=== PATIENT | male | born 1930 | race Hispanic/Latino ===

== ENCOUNTER 2018-04-27 13:02 | Emergency (ER) | payer MEDICARE, OTHER ==
[~2018-04-27] VITALS: Ht 167.6 cm; Wt 68.9 kg
[~2018-04-27 13:02] MED LIST: ATORVASTATIN CA20 MG PO; CLOPIDOGREL75 MG PO; FLOMAX0.4 MG PO; GABAPENTIN400 MG PO; LASIX20 MG PO; LEVAQUIN250 MG PO; LISINOPRIL10 MG PO; LISINOPRIL2.5 MG PO
--- OUTSIDE RECORDS SUMMARY | 2018-04-27 13:06 | XMS REPORT | Clinical Summary ---
Author Author [facility] Address Unknown Phone Unavailable Care Team Providers Care Plant Wire Chief Name Role Phone Daryn Bahena MD PCP Allergies No Known Allergies Medications End Date Status Medication Sig Dispensed Refills Start Date Active gabapentin (NEURONTIN) Take 400 mg 0 400 mg capsule by mouth daily. Active tamsulosin (FLOMAX) 0.4 Take 0.4 mg 0 mg capsule,extended by mouth release 24hr daily. Active aspirin (ECOTRIN) 81 MG Take 81 mg by 0 enteric coated tablet mouth daily. Active clopidogrel (PLAVIX) 75 Take 75 mg by 0 mg tablet mouth daily. Active atorvastatin (LIPITOR) 20 Take 20 mg by 0 MG tablet mouth daily. Default OP ins Active lisinopril Take 2.5 mg 0 (PRINIVIL,ZESTRIL) 2.5 mg by mouth tablet daily. Active Problems Not on file Family History Medical History Relation Name Comments Diabetes Mother Relation Name Status Comments Mother Social History Date Tobacco Use Types Packs/Day Years Used Quit: 1971 Former Smoker Alcohol Use Drinks/Week oz/Week Comments No Sex Assigned at Date Recorded Not on file Industry Job Start Date Occupation Not on file Not on file Not on file Travel End Travel History Travel Start No recent travel history available. Last Filed Vital Signs Not on file Plan of Treatment Health Maintenance Due Date Last Done Comments SHINGLES VACCINES (#1) 1982 65+ PNEUMOCOCCAL VACCINE 1997 (1 of 2 - PCV13) PNEUMOCOCCAL 1997 POLYSACCHARIDE VACCINE AGE 65 AND OVER INFLUENZA VACCINE 09/16/2017 Results Not on fileafter 04/26/2017 Insurance Payer Benefit Subscriber ID Type Phone Address Plan / Group MEDICARE MEDICARE xxxxxxxxxx Medicare [place], [place] PART [place] B MEDICAID MEDICAID xxxxxxxxx Medicaid Advance Directives Patient has advance care planning documents on file. For more information, silvina mon contact: Richard Cosme [phone] [place] [address]
--- OUTSIDE RECORDS SUMMARY | 2018-04-27 13:06 | XMS REPORT | Continuity of Care Document ---
Author Author [facility] Interface Address Unknown Phone Unavailable Problems Problem Status Onset Date Classification Date Reported Comments Source J98.4 Active 11/12/2017 [facility] DX: [id number] EFFUSION, NOT ELSEWHERE Active 09/29/2016 [facility] N/V Active 08/16/2016 [facility] BACTERIAL LOBAR PNEUMONIA,SIRS Active 08/16/2016 [facility] Hypertensive heart disease, benign, without CHF Active Problem 01/15/2017 [facility] Nav[facility] Varicose veins of leg with complications Active Problem 01/15/2017 Dion Navas Atherosclerosis of lower extremity with claudication Active Problem 01/15/2017 Dion Navas Bilateral carotid bruits Active Problem 01/15/2017 Dion Navas SSS Active Problem 01/15/2017 Dion Navas Chronic diastolic heart failure Active Problem 01/15/2017 Dion Navas Status post coronary artery stent placement Active Problem 01/15/2017 Dion Navas Pain in limb Active Problem 01/15/2017 Dion Navas Bradycardia Active Problem 01/15/2017 Dion Navas CAD of artery bypass graft Active Problem 01/15/2017 Dion Navas Swelling of limb Active Problem 01/15/2017 Dion Navas Hypercholesterolemia Active Problem 01/15/2017 Dion Navas 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 Active Diagnosis 01/15/2017 Dion Navas H/O aortic valve replacement Active Problem 01/15/2017 Dion Navas Abnormal EKG Active Problem 01/15/2017 Dion Navas Aortic valve disorders Active Problem 09/10/2014 Dion Navas HTN heart dis benign, without CHF Active Problem 09/10/2014 Dion Navas Shortness of breath Active Problem 09/10/2014 Dion Navas Equivalent angina Active Problem 09/10/2014 Dion Navas Atherosclerosis of lower extremity with claudication Active Problem 09/10/2014 Dion Navas Venous insufficiency Active Problem 09/10/2014 Dion Navas Pain in limb Active Problem 09/10/2014 Dion Navas Unspecified peripheral vascular disease Active Problem 09/10/2014 Dion Navas Chest pain at rest Active Problem 09/10/2014 Dion Navas Swelling of limb Active Problem 09/10/2014 Dion Navas Varicose veins of leg with complications Active Problem 09/10/2014 Dion Navas CAD, Graft Active Diagnosis 09/10/2014 Dion Navas Generalized osteoarthrosis, involving multiple sites Active Problem 09/10/2014 Dion Navas Heart valve artificial Active Problem 09/10/2014 Dion Navas Abnormal EKG Active Problem 09/10/2014 Dion Navas 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 Active Diagnosis 09/10/2014 Dion Navas Status post coronary artery stent placement Active Diagnosis 09/10/2014 Dion Navas H/O aortic valve replacement Active Diagnosis 09/10/2014 Dion Navas Abnormal ECG Active Diagnosis 09/10/2014 Dion Navas Varicose veins of both lower extremities with complications Active Diagnosis 09/10/2014 Dion Navas Diabetes Active Problem 10/05/2016 [facility] Hypercholesteremia Active Problem 10/05/2016 [facility] Hypertension Active Problem 10/05/2016 [facility] PLEURAL EFFUSION, NOT ELSEWHERE CLASSIFI Active [facility] UNSPECIFIED BACTERIAL PNEUMONIA Active [facility] SIRS OF NON-INFECTIOUS ORIGIN W/O ACUTE Active [facility] OTHER SPECIFIED RESPIRATORY DISORDERS Active [facility] Medications Medication Details Route Status Patient Instructions Ordering Provider Order Date Source Furosemide 1 tablet Orally Active 20 MG Orally Once a day Jeroudi 09/08/2016 Dion Navas Levofloxacin 750 MG Oral Tablet [Levaquin] 750 mg=1 tab, PO, Q24H, X 14 day, # 14 tab, 0 Refill(s), Pharmacy: [facility] [id number] Active 08/20/2016 [facility] Lisinopril 20 mg, 1 tab, Route: PO, Drug form: TAB, Daily, Dosing Weight 81.534, kg, Start date: 08/18/16 9:00:00 CDT, Duration: 30 day, Stop date: 09/16/16 9:00:00 CDTNotes: (Same as: Prinivil, Zestril) No Longer Active 08/18/2016 [facility] gabapentin 400 MG Oral Capsule 400 mg, 1 cap, Route: PO, Drug form: CAP, Daily, Dosing Weight 81.534, kg, Start date: 08/18/16 9:00:00 CDT, Duration: 30 day, Stop date: 09/16/16 9:00:00 CDTNotes: (Same as: Neurontin) No Longer Active 08/18/2016 [facility] clopidogrel 75 mg, 1 tab, Route: PO, Drug form: TAB, Daily, Dosing Weight 81.534, kg, Start date: 08/18/16 9:00:00 CDT, Duration: 30 day, Stop date: 09/16/16 9:00:00 CDTNotes: (Same As: Plavix) No Longer Active 08/18/2016 [facility] Aspirin 81 mg, 1 tab, Route: PO, Drug form: [place], Daily, Dosing Weight 81.534, kg, Start date: 08/18/16 9:00:00 CDT, Duration: 30 day, Stop date: 09/16/16 9:00:00 CDTNotes: Take with food. No Longer Active 08/18/2016 [facility] tamsulosin 0.4 mg, 1 cap, Route: PO, Drug form: CAP, Daily, Dosing Weight 81.534, kg, Start date: 08/17/16 22:58:00 CDT, Duration: 30 day, Stop date: 09/15/16 9:00:00 CDTNotes: (Same As: Flomax) "Do Not Crush" No Longer Active 08/18/2016 [facility] atorvastatin 20 mg, 2 tab, Route: PO, Drug form: TAB, Bedtime, Dosing Weight 81.534, kg, Start date: 08/17/16 21:00:00 CDT, Duration: 30 day, Stop date: 09/15/16 21:00:00 CDTNotes: (Same As: Lipitor) No Longer Active 08/18/2016 [facility] cefepime 2 gm, Route: IVPB, [id number], Dosing Weight 81.534, kg, (CrCl >/=50 ml/min, HEEL FORMER infection or neutropenic fever), Start date: 08/17/16 19:00:00 CDT, Duration: 10 day, Stop date: 08/27/16 12:00:00 CDT, ABX Indication: PneumoniaNotes: (Same as: Maxipime) MEDICATION WASTE Product Size: 2000 mg Product Wasted: ___ mg No Longer Active 08/18/2016 [facility] Flagyl 500 mg, 100 mL, Route: IVPB, Drug form: INJ, [id number], Dosing Weight 81.534, kg, Start date: 08/17/16 19:00:00 CDT, Duration: 14 day, Stop date: 08/31/16 11:00:00 CDT, ABX Indication: PneumoniaNotes: (Same as: Flagyl) Avoid alcohol. No Longer Active 08/18/2016 [facility] aspirin 81 mg tablet, enteric coated 81 mg=1 tab, PO, Daily, # 90 tab, 3 Refill(s) Active 08/17/2016 [facility] lisinopril 20 mg oral tablet 20 mg=1 tab, PO, Daily, # 30 tab, 0 Refill(s) Active 08/17/2016 [facility] clopidogrel 75 mg oral tablet 75 mg=1 tab, PO, Daily, # 30 tab, 0 Refill(s) Active 08/17/2016 [facility] Vitamin D3 2000 intl units oral capsule 2,000 IntlUnit=1 cap, PO, Daily, # 100 cap, 3 Refill(s) Active 08/17/2016 [facility] Aspirin 81 mg, PO, Daily, 0 Refill(s) Active 08/17/2016 [facility] gabapentin 400 MG Oral Capsule 400 mg=1 cap, PO, Daily, 0 Refill(s) Active 08/17/2016 [facility] atorvastatin 20 mg, PO, Daily, 0 Refill(s) Active 08/17/2016 [facility] tamsulosin 0.4 mg, PO, Daily, 0 Refill(s) Active 08/17/2016 [facility] Levofloxacin 500 mg, 100 mL, Route: IVPB, Drug form: SOLN, [id number], Dosing Weight 81.534, kg, Priority: Routine, Start date: 08/17/16 3:00:00 CDT, Duration: 5 day, Stop date: 08/21/16 3:00:00 CDT, ABX Indication: PneumoniaNotes: (Same as:Levaquin) Inactive 08/17/2016 [facility] dextromethorphan-guaiFENesin 10 mg-100 mg/5 mL oral liquid 10 mL, Route: PO, Drug Form: SYRP, Dosing Weight 81.534, kg, Q4H, PRN Cough, Start date: 08/17/16 2:51:00 CDT, Duration: 30 day, Stop date: 09/16/16 2:50:00 CDTNotes: (dextromethorphan-guaifenesin 10-100mg/5ml 10 ml oral SOLN ud) (Same as: Robitussin DM) No Longer Active 08/17/2016 [facility] Codeine Phosphate 2 MG/ML / Guaifenesin 20 MG/ML Oral Solution 5 mL, Route: PO, Drug Form: LIQ, Dosing Weight 81.534, kg, Q4H, PRN Cough, Start date: 08/17/16 2:51:00 CDT, Duration: 30 day, Stop date: 09/16/16 2:50:00 CDTNotes: (Same As: Duanesin AC) No Longer Active 08/17/2016 [facility] Sodium Chloride 0.0769 MEQ/ML Injectable Solution 1,000 mL, Rate: 75 ml/hr, Infuse over: 13.3 hr, Route: IV, Dosing Weight 81.534 kg, Total Volume: 1,000, Start date: 08/17/16 2:51:00 CDT, Duration: 30 day, Stop date: 09/16/16 2:50:00 CDT No Longer Active 08/17/2016 [facility] Albuterol 0.833 MG/ML / Ipratropium [place] 0.167 MG/ML Inhalant Solution 3 mL, Route: NEB, Drug Form: SOLN, Dosing Weight 81.534, kg, PRN, PRN Respiratory Protocol, Start date: 08/17/16 2:51:00 CDT, Duration: 30 day, Stop date: 09/16/16 2:50:00 CDTNotes: (Same as: Duoneb) No Longer Active 08/17/2016 [facility] Saline Flush 0.9% 10 ml, Route: IVP, Drug Form: INJ, Dosing Weight 81.534, kg, PRN, PRN Line Flush, Start date: 08/17/16 2:51:00 CDT, Duration: 30 day, Stop date: 09/16/16 2:50:00 CDTNotes: (Same as: BD Posiflush) No Longer Active 08/17/2016 [facility] Insulin, Aspart, Human 10 unit, 0.1 mL, Route: SUB-Q, Drug form: SOLN, TID-Before Meals, Dosing Weight 81.534, kg, PRN Blood Glucose Results, Start date: 08/17/16 2:41:00 CDT, Duration: 30 day, Stop date: 09/16/16 2:40:00 CDTNotes: Roll in palms of hands gently; Do not shake vigorously. (Same as: NovoLOG) "single patient use only" WASTE: F/P - Black; E - Municipal Trash Bin Stable for 28 days at room temperature. Expires in days from Date No Longer Active 08/17/2016 [facility] Dextrose 50% Syringe 12.5 gm, 25 mL, Route: IVP, Drug Form: INJ, Dosing Weight 81.534, kg, PRN, PRN Blood Glucose Results, Start date: 08/17/16 2:41:00 CDT, Duration: 30 day, Stop date: 09/16/16 2:40:00 CDT No Longer Active 08/17/2016 [facility] Glucagon 1 mg, Route: IM, Drug form: PDR/INJ, PRN, Dosing Weight 81.534, kg, PRN Blood Glucose Results, Start date: 08/17/16 2:41:00 CDT, Duration: 30 day, Stop date: 09/16/16 2:40:00 CDT No Longer Active 08/17/2016 [facility] Vancomycin 1,000 mg, Route: IVPB, ONCE, Dosing Weight 81.818, kg, Priority: STAT, Start date: 08/17/16 0:12:00 CDT, Duration: 1 doses or times, Stop date: 08/17/16 0:12:00 CDT, ABX Indication: PneumoniaNotes: TIME CRITICAL MEDICATION (Same As: Vancocin) Infusion rate 2001 mg: infuse over 2.5 hours MEDICATION WASTE Product Size: 1000 mg Product Wasted: ___ mg Inactive 08/17/2016 [facility] Zosyn 3.375 gm, Route: IVPB, ONCE, Dosing Weight 81.818, kg, Priority: STAT, Start date: 08/16/16 23:11:00 CDT, Duration: 1 doses or times, Stop date: 08/16/16 23:11:00 CDT, ABX Indication: Intra-abdominal Infection No Longer Active 08/17/2016 [facility] Sodium Chloride 0.154 MEQ/ML Injectable Solution 1,000 mL, 1,000 ml/hr, Infuse Over: 1 hr, Route: IV, ONCE, Priority: STAT, Dosing Weight 81.818 kg, Start date: 08/16/16 23:11:00 CDT, Duration: 1 doses or times, Stop date: 08/16/16 23:11:00 CDT No Longer Active 08/17/2016 [facility] Sodium Chloride 0.154 MEQ/ML Injectable Solution 1,000 mL, 1,000 ml/hr, Infuse Over: 1 hr, Route: IV, 1,000, Drug form: INJ, ONCE, Priority: STAT, Dosing Weight 81.818 kg, Start date: 08/16/16 22:42:00 CDT, Duration: 1 doses or times, Stop date: 08/16/16 22:42:00 CDT Inactive 08/17/2016 [facility] Protonix 40 mg, Route: IVP, Drug form: INJ, ONCE, Dosing Weight 81.818, kg, Priority: STAT, Start date: 08/16/16 21:51:00 CDT, Stop date: 08/16/16 21:51:00 CDTNotes: For IV push reconstitute with 10 ml 0.9% sodi um chloride and push over 2 minutes. (Same as: Protonix) No Longer Active 08/17/2016 [facility] Acetaminophen 975 mg, 3 tab, Route: PO, Drug form: TAB, ONCE, Dosing Weight 81.818, kg, Start date: 08/16/16 21:43:00 CDT, Stop date: 08/16/16 21:43:00 CDTNotes: Do not exceed 4 gm/day. (Same as: Tylenol) Inactive 08/17/2016 [facility] Saline Flush 0.9% 10 mL, Route: IVP, Drug Form: INJ, Dosing Weight 81.818, kg, PRN, PRN Line Flush, Start date: 08/16/16 21:43:00 CDT, Duration: 30 day, Stop date: 09/15/16 21:42:00 CDTNotes: (Same as: BD Posiflush) No Longer Active 08/17/2016 [facility] Clopidogrel Bisulfate 1 tablet Orally Active 75 mg Orally Once a day [facility] 08/18/2013 [facility] Lisinopril 1 half tablet Orally Active 5 MG Orally Once a day [facility] Lisinopril 1 half tablet Orally Active 5 MG Or[facility] Aspir-81 1 tablet Orally Active 81 MG Orally [facility] Avodart 1 capsule Orally Active 0.5 MG Orally [facility] a [facility] Cyclobenzaprine HCl 1 tablet Orally Active 5 MG Orally PRN [facility] Baclofen 1 tablet Orally Active 10 mg Orally once a day [facility] Atorvastatin Calcium 1 tablet Orally Active 20 MG Orally Once a day [facility] Metoprolol Tartrate 1 tablet Orally Active 25 MG Orally Twice a day [facility] Tamsulosin HCl 1 tablet Orally Active 0.4 MG Orally Once a day [facility] Lisinopril 1 half tablet Orally Active 5 Orally [facility] a [facility] Lovastatin 1 tablet Orally Active 40 mg Orally [facility] a [facility] Pentoxifylline CR 1 tablet Orally No Longer Active 400 MG Orally three times a day (tid) [facility] Allergies, Adverse Reactions, Alerts Substance Category Reaction Severity Reaction type Status Date Reported Comments Source N.K.D.A. Adverse Reaction Info Not Available Adverse Reaction Active 05/02/2014 [facility] Navas Immunizations Immunization Date Given Site Status Last Updated Comments Source Results Order Name Results Value Reference Range Date Interpretation Comments Source Chest wo contrast CT Chest wo contrast CT Clinical Indication: - J98.4 Other disorders of lung. Monitoring small spot on lung found x2 years ago, after pneumonia. Prior CT demonstrated pulmonary nodules. Comparison: 10/02/2016. TECHNIQUE: Sequential trans-axial images were obtained through the chest without the administration of IV iodinated contrast. Coronal and sagittal reconstructions were obtained. Dose: HKC=411 mGy-cm Findings: Lungs: There are a few scattered punctate pulmonary nodules which are stable from the prior study. Persistent scarring within the lower lungs bilaterally. Airways: Normal. Pleural and pericardial spaces: Interval decrease in size of the right pleural effusion. Only trace right pleural effusion or pleural thickening remains. Thoracic lymph nodes: Normal. Lower neck: Normal. Upper abdomen: Cholelithiasis. Vasculature: Extensive coronary calcifications. There are also prominent aortic and mitral valvular calcifications. No aortic aneurysm. Osseous structures: Prior median sternotomy. Moderate degenerative spurring of the thoracic spine. Mild curvature of the thoracic spine convex to the left. IMPRESSION: Stable subcentimeter pulmonary nodules which are therefore benign by radiologic criteria. No further follow-up is necessary for these nodules. Interval decrease in size of a right pleural effusion with only a trace right pleural effusion or pleural thickening remaining. Cholelithiasis. Prominent coronary, aortic valvular and mitral valvular calcifications. SL: IRMA 11/19/2017 - - Read by: Ilya Jones MD Dictated Date/time: 11/19/17 23:34 Electronically Signed by: Ilya Jones MD 11/19/17 23:50 FINAL REPORT [facility] wo contrast CT Chest wo contrast CT Patient Name: ASHANTI ROLAND : 1930; Age: 86 years Male MR: [id number] Study: Chest wo contrast CT 10/02/2016 10:12 AM CDT CLINICAL INDICATION: CT dose DLP 322 mGy-cm - J90 Pleural effusion, not elsewhere classified pt states this is a follow up for the pleural effusion COMPARISON: CT chest on 08/17/2016 TECHNIQUE: Multidetector CT imaging of the thorax without the administration of iodinated contrast. Coronal and sagittal reconstructions were obtained. FINDINGS: Lung parenchyma: Stable 4 mm nodule within the lingula. Stable 3 mm nodule within the right upper lobe. Atelectatic changes within the lower right lung. Pleura: Small and partially loculated right pleural effusion. Airways: The central airways appear patent. Mediastinum: Unremarkable thyroid. No significant lymphadenopathy. Coronary artery and valvular calcifications. Bones and soft tissues: Degenerative changes of the thoracic spine. Median sternotomy wires appear intact. Upper abdomen: The visualized structures of the upper abdomen are grossly unremarkable. IMPRESSION: Small and partially loculated right pleural effusion, not significantly changed since 08/17/2016. Previously noted groundglass opacities within the right lower lung and left perihilar region have resolved. Two unchanged small pulmonary nodules as described. SL: [id number] 10/02/2016 - - Read by: Cat Lorenz MD Dictated Date/time: 10/02/16 11:48 Electronically Signed by: Cat Lorenz MD 10/02/16 11:57 FINAL REPORT [facility] CHEM PANEL eGFR 71 mL/min/1.73m2 08/19/2016 Result Comment: The eGFR is calculated using the CKD-EPI formula. In most young, healthy individuals the eGFR will be >90 mL/min/1.73m2. The eGFR declines with age. An eGFR of 60-89 may be normal in some populations, particularly the elderly, for whom the CKD-EPI formula has not been extensively validated. Use of the eGFR is not recommended in the following populations: Individuals with unstable creatinine concentrations, including patients and those with serious co-morbid conditions. Patients with extremes in muscle mass or diet. The data above are obtained from the National Kidney Disease Education Program (NKDEP) which additionally recommends that when the eGFR is used in patients with extremes of body mass index for purposes of drug dosing, the eGFR should be multiplied by the estimated BMI. [facility] CHEM PANEL AGAP 11.2 meq/L 10.0 - 20.0 08/19/2016 [facility]M PANEL Bili Total 0.4 mg/dL 0.2 - 1.3 08/19/2016 [facility] CHEM PANEL AST 20 unit/L 0 - 37 08/19/2016 [facility] CHEM PANEL Alk Phos 61 unit/L 39 - 136 08/19/2016 [facility] CHEM PANEL Albumin Lvl 2.8 g/dL 3.5 - 5.0 08/19/2016 [facility] CHEM PANEL ALT 17 unit/L 0 - 65 08/19/2016 [facility] CHEM PANEL Total Protein 6.3 g/dL 6.4 - 8.4 08/19/2016 [facility] CHEM PANEL CO2 26 meq/L 24 - 32 08/19/2016 [facility] CHEM PANEL Calcium Lvl 8.1 mg/dL 8.5 - 10.5 08/19/2016 [facility] CHEM PANEL Potassium Lvl 4.2 meq/L 3.5 - 5.1 08/19/2016 [facility] CHEM PANEL Chloride Lvl 107 meq/L 95 - 109 08/19/2016 [facility] CHEM PANEL A/G Ratio 0.8 0.7 - 1.6 08/19/2016 [facility] CHEM PANEL B/C Ratio 18 6 - 25 08/19/2016 [facility] CHEM PANEL Globulin 3.5 g/dL 2.7 - 4.2 08/19/2016 [facility] CHEM PANEL Creatinine Lvl 0.97 mg/dL 0.50 - 1.40 08/19/2016 [facility] CHEM PANEL Sodium Lvl 140 meq/L 135 - 145 08/19/2016 [facility] CHEM PANEL Glucose Lvl 96 mg/dL 70 - 99 08/19/2016 [facility] CHEM PANEL BUN 17 mg/dL 7 - 22 08/19/2016 [facility] HEMATOLOGY Eosinophils # 0.3 K/CMM 0.0 - 0.5 08/19/2016 [facility] HEMATOLOGY Lymphocytes 12.5 % 20.0 - 40.0 08/19/2016 [facility] HEMATOLOGY Basophils 0.6 % 0.0 - 1.0 08/19/2016 [facility] HEMATOLOGY Eosinophils 3.5 % 0.0 - 4.0 08/19/2016 [facility] HEMATOLOGY Monocytes 10.2 % 2.0 - 12.0 08/19/2016 [facility] HEMATOLOGY Segs 73.2 % 45.0 - 75.0 08/19/2016 [facility] HEMATOLOGY Segs-Bands # 5.4 K/CMM 1.5 - 8.1 08/19/2016 [facility] HEMATOLOGY Monocytes # 0.7 K/CMM 0.0 - 0.8 08/19/2016 [facility] HEMATOLOGY Lymphocytes # 0.9 K/CMM 1.0 - 5.5 08/19/2016 [facility] HEMATOLOGY MCV 91.1 fL 80.0 - 94.0 08/19/2016 [facility] HEMATOLOGY MCH 30.4 pg 27.0 - 31.0 08/19/2016 [facility] HEMATOLOGY RDW 14.0 % 11.5 - 14.5 08/19/2016 [facility] HEMATOLOGY MCHC 33.3 g/dL 32.0 - 36.0 08/19/2016 [facility] HEMATOLOGY Platelet 114 K/CMM 133 - 450 08/19/2016 [facility] HEMATOLOGY MPV 10.8 fL 7.4 - 10.4 08/19/2016 [facility] HEMATOLOGY RBC 3.54 M/CMM 4.70 - 6.10 08/19/2016 [facility] HEMATOLOGY WBC 7.3 K/CMM 3.7 - 10.4 08/19/2016 [facility] Hct 32.3 % 42.0 - 54.0 08/19/2016 [facility] HEMATOLOGY Hgb 10.8 g/dL 14.0 - 18.0 08/19/2016 [facility] CHEM PANEL Lactic Acid Lvl 1.3 mMol/L 0.5 - 2.2 08/18/2016 [facility] CHEM PANEL Bili Total 0.4 mg/dL 0.2 - 1.3 08/18/2016 [facility] CHEM PANEL AGAP 8.4 meq/L 10.0 - 20.0 08/18/2016 [facility] CHEM PANEL Alk Phos 63 unit/L 39 - 136 08/18/2016 [facility] CHEM PANEL eGFR 61 mL/min/1.73m2 08/18/2016 Result Comment: The eGFR is calculated using the CKD-EPI formula. In most young, healthy individuals the eGFR will be >90 mL/min/1.73m2. The eGFR declines with age. An eGFR of 60-89 may be normal in some populations, particularly the elderly, for whom the CKD-EPI formula has not been extensively validated. Use of the eGFR is not recommended in the following populations: Individuals with unstable creatinine concentrations, including patients and those with serious co-morbid conditions. Patients with extremes in muscle mass or diet. The data above are obtained from the National Kidney Disease Education Program (NKDEP) which additionally recommends that when the eGFR is used in patients with extremes of body mass index for purposes of drug dosing, the eGFR should be multiplied by the estimated BMI. [facility] CHEM PANEL B/C Ratio 15 6 - 25 08/18/2016 [facility] CHEM PANEL Globulin 3.6 g/dL 2.7 - 4.2 08/18/2016 [facility] CHEM PANEL A/G Ratio 0.8 0.7 - 1.6 08/18/2016 [facility] CHEM PANEL Total Protein 6.5 g/dL 6.4 - 8.4 08/18/2016 [facility] CHEM PANEL Albumin Lvl 2.9 g/dL 3.5 - 5.0 08/18/2016 [facility] CHEM PANEL Calcium Lvl 8.1 mg/dL 8.5 - 10.5 08/18/2016 [facility] CHEM PANEL AST 25 unit/L 0 - 37 08/18/2016 [facility] CHEM PANEL ALT 18 unit/L 0 - 65 08/18/2016 [facility] CHEM PANEL Sodium Lvl 140 meq/L 135 - 145 08/18/2016 [facility] CHEM PANEL CO2 28 meq/L 24 - 32 08/18/2016 [facility] CHEM PANEL Potassium Lvl 4.4 meq/L 3.5 - 5.1 08/18/2016 [facility] CHEM PANEL Chloride Lvl 108 meq/L 95 - 109 08/18/2016 [facility] CHEM PANEL BUN 17 mg/dL 7 - 22 08/18/2016 [facility] CHEM PANEL Creatinine Lvl 1.10 mg/dL 0.50 - 1.40 08/18/2016 [facility] CHEM PANEL Glucose Lvl 112 mg/dL 70 - 99 08/18/2016 [facility] BACTERIAL - SEROLOGY Source Strep Urine *NA* (08/17/16 10:17 PM) 08/18/2016 [facility] BACTERIAL - SEROLOGY Strep pneumoniae Ag Negative (08/17/16 10:17 PM) Negative 08/18/2016 [facility] Chest wo contrast CT Chest wo contrast CT CT CHEST WITHOUT CONTRAST: HISTORY: Pneumonia, TECHNIQUE: Multislice axial acquisitions were done through the chest without contrast. Sagittal and coronal reformatted images were also obtained. FINDINGS: Mild interstitial infiltrates in the right middle lobe and lingula are noted. There is a small loculated right pleural effusion with mild adjacent subsegmental atelectasis. There is no significant left effusion. Small groundglass opacities in the left perihilar region are seen. There are no other significant pulmonary or pleural abnormalities. There is no mediastinal mass or significant lymph node enlargement. Atherosclerotic calcification is seen in the aorta and coronary arteries. There are no acute osseous abnormalities. IMPRESSION: 1. Mild right middle lobe and lingular infiltrates consistent with pneumonia. 2. Small loculated right pleural effusion with adjacent atelectasis. CECILIO DLAWRENCE-PC 08/17/2016 - - Read by: Camron Loera MD Dictated Date/time: 08/17/16 12:24 Electronically Signed by: Camron Loera MD 08/17/16 12:30 FINAL REPORT [facility] CHEM PANEL Lactic Acid Lvl 1.4 mMol/L 0.5 - 2.2 08/17/2016 [facility] CHEM PANEL eGFR 55 mL/min/1.73m2 08/17/2016 Result Comment: The eGFR is calculated using the CKD-EPI formula. In most young, healthy individuals the eGFR will be >90 mL/min/1.73m2. The eGFR declines with age. An eGFR of 60-89 may be normal in some populations, particularly the elderly, for whom the CKD-EPI formula has not been extensively validated. Use of the eGFR is not recommended in the following populations: Individuals with unstable creatinine concentrations, including patients and those with serious co-morbid conditions. Patients with extremes in muscle mass or diet. The data above are obtained from the National Kidney Disease Education Program (NKDEP) which additionally recommends that when the eGFR is used in patients with extremes of body mass index for purposes of drug dosing, the eGFR should be multiplied by the estimated BMI. [facility] CHEM PANEL Alk Phos 65 unit/L 39 - 136 08/17/2016 [facility] CHEM PANEL AST 20 unit/L 0 - 37 08/17/2016 [facility] CHEM PANEL Bili Total 0.5 mg/dL 0.2 - 1.3 08/17/2016 [facility] CHEM PANEL Glucose Lvl 113 mg/dL 70 - 99 08/17/2016 [facility] CHEM PANEL Creatinine Lvl 1.20 mg/dL 0.50 - 1.40 08/17/2016 [facility] CHEM PANEL BUN 19 mg/dL 7 - 22 08/17/2016 [facility] CHEM PANEL Sodium Lvl 141 meq/L 135 - 145 08/17/2016 [facility] CHEM PANEL Potassium Lvl 4.1 meq/L 3.5 - 5.1 08/17/2016 [facility] CHEM PANEL A/G Ratio 0.9 0.7 - 1.6 08/17/2016 [facility] CHEM PANEL Globulin 3.1 g/dL 2.7 - 4.2 08/17/2016 [facility] CHEM PANEL Albumin Lvl 2.7 g/dL 3.5 - 5.0 08/17/2016 [facility] CHEM PANEL Total Protein 5.8 g/dL 6.4 - 8.4 08/17/2016 [facility] CHEM PANEL CO2 25 meq/L 24 - 32 08/17/2016 [facility] CHEM PANEL Chloride Lvl 109 meq/L 95 - 109 08/17/2016 [facility] CHEM PANEL Calcium Lvl 7.8 mg/dL 8.5 - 10.5 08/17/2016 [facility] CHEM PANEL AGAP 11.1 meq/L 10.0 - 20.0 08/17/2016 [facility] CHEM PANEL ALT 16 unit/L 0 - 65 08/17/2016 [facility] CHEM PANEL B/C Ratio 16 6 - 25 08/17/2016 [facility] HEMATOLOGY Lymphocytes # 1.4 K/CMM 1.0 - 5.5 08/17/2016 [facility] HEMATOLOGY Monocytes # 1.0 K/CMM 0.0 - 0.8 08/17/2016 [facility] HEMATOLOGY Basophils # 0.1 K/CMM 0.0 - 0.2 08/17/2016 [facility] HEMATOLOGY Basophils 0.5 % 0.0 - 1.0 08/17/2016 [facility] Segs-Bands # 11.9 K/CMM 1.5 - 8.1 08/17/2016 [facility] Segs 82.3 % 45.0 - 75.0 08/17/2016 [facility] Monocytes 7.0 % 2.0 - 12.0 08/17/2016 [facility] Lymphocytes 10.0 % 20.0 - 40.0 08/17/2016 [facility] HEMATOLOGY Eosinophils 0.2 % 0.0 - 4.0 08/17/2016 [facility] HEMATOLOGY MPV 9.9 fL 7.4 - 10.4 08/17/2016 [facility] Platelet 121 K/CMM 133 - 450 08/17/2016 [facility] MCV 89.8 fL 80.0 - 94.0 08/17/2016 [facility] Hgb 10.2 g/dL 14.0 - 18.0 08/17/2016 [facility] Hct 30.2 % 42.0 - 54.0 08/17/2016 [facility] RBC 3.37 M/CMM 4.70 - 6.10 08/17/2016 [facility] HEMATOLOGY WBC 14.4 K/CMM 3.7 - 10.4 08/17/2016 [facility] MCHC 33.6 g/dL 32.0 - 36.0 08/17/2016 [facility] HEMATOLOGY RDW 13.7 % 11.5 - 14.5 08/17/2016 [facility] MCH 30.2 pg 27.0 - 31.0 08/17/2016 [facility] CARDIAC ENZYMES CK MB 3.3 ng/mL 0.5 - 3.6 08/17/2016 [facility] CARDIAC ENZYMES Troponin-I 0.04 ng/mL 0.00 - 0.40 08/17/2016 [facility] CARDIAC ENZYMES Total CK 116 unit/L 12 - 191 08/17/2016 [facility] CARDIAC ENZYMES CK MB Index 2.8 0.0 - 2.5 08/17/2016 [facility] CHEM PANEL Lipase Lvl 131 unit/L 73 - 393 08/17/2016 [facility] CHEM PANEL Procalcitonin Lvl 0.06 ng/mL 0.00 - 0.10 08/17/2016 [facility] CHEM PANEL Lactic Acid Lvl 2.6 mMol/L 0.5 - 2.2 08/17/2016 [facility] PTT 31.7 s 22.9 - 35.8 08/17/2016 [facility] Platelet 150 K/CMM 133 - 450 08/17/2016 [facility] MPV 10.1 fL 7.4 - 10.4 08/17/2016 [facility] MCV 91.3 fL 80.0 - 94.0 08/17/2016 [facility] MCH 30.3 pg 27.0 - 31.0 08/17/2016 [facility] MCHC 33.2 g/dL 32.0 - 36.0 08/17/2016 [facility] RDW 13.7 % 11.5 - 14.5 08/17/2016 [facility] Hct 35.4 % 42.0 - 54.0 08/17/2016 [facility] WBC 13.1 K/CMM 3.7 - 10.4 08/17/2016 [facility] RBC 3.88 M/CMM 4.70 - 6.10 08/17/2016 [facility] Hgb 11.8 g/dL 14.0 - 18.0 08/17/2016 [facility] INR 1.02 0.85 - 1.17 08/17/2016 [facility] PT 13.6 s 12.0 - 14.7 08/17/2016 [facility] Basophils # 0.1 K/CMM 0.0 - 0.2 08/17/2016 [facility] Basophils 0.5 % 0.0 - 1.0 08/17/2016 [facility] Segs-Bands # 11.6 K/CMM 1.5 - 8.1 08/17/2016 [facility] Lymphocytes # 0.7 K/CMM 1.0 - 5.5 08/17/2016 [facility] HEMATOLOGY Monocytes # 0.6 K/CMM 0.0 - 0.8 08/17/2016 [facility] HEMATOLOGY Eosinophils # 0.1 K/CMM 0.0 - 0.5 08/17/2016 [facility] HEMATOLOGY Segs 89.0 % 45.0 - 75.0 08/17/2016 [facility] HEMATOLOGY Lymphocytes 5.3 % 20.0 - 40.0 08/17/2016 [facility] HEMATOLOGY Monocytes 4.7 % 2.0 - 12.0 08/17/2016 [facility] HEMATOLOGY Eosinophils 0.5 % 0.0 - 4.0 08/17/2016 [facility] URINE AND STOOL UA Blood Negative (08/16/16 9:59 PM) Negative 08/17/2016 [facility] URINE AND STOOL UA Nitrite Negative (08/16/16 9:59 PM) Negative 08/17/2016 [facility] URINE AND STOOL UA Leuk Est Negative (08/16/16 9:59 PM) Negative 08/17/2016 [facility] URINE AND STOOL UA WBC null 0 - 5 08/17/2016 [facility] URINE AND STOOL UA Sq Epi None Seen 08/17/2016 [facility] URINE AND STOOL UA RBC null 0 - 2 08/17/2016 [facility] URINE AND STOOL UA Color Ltyellow 08/17/2016 [facility] URINE AND STOOL UA Urobilinogen <=1.0 mg/dL 0.1 - 1.0 08/17/2016 [facility] URINE AND STOOL UA Bili Negative *NA* (08/16/16 9:59 PM) Negative 08/17/2016 [facility] URINE AND STOOL UA Glucose Negative mg/dL Negative mg/dL 08/17/2016 [facility] URINE AND STOOL UA Ketones Negative mg/dL Negative mg/dL 08/17/2016 [facility] URINE AND STOOL UA pH 5.0 5.0 - 8.0 08/17/2016 [facility] URINE AND STOOL UA Spec Grav 1.043 <=1.030 08/17/2016 [facility] URINE AND STOOL UA Protein Negative mg/dL Negative mg/dL 08/17/2016 [facility] URINE AND STOOL UA Turbidity Clear (08/16/16 9:59 PM) Clear 08/17/2016 [facility] Chest 1view DX Chest 1view DX EXAM: XR CHEST 1 VIEW DATE: 08/16/2016 9:43 PM CDT INDICATION: Undifferentiated Sepsis. COMPARISON: 06/26/2007 TECHNIQUE: A single AP view of the chest was obtained. FINDINGS: There is a right basilar airspace opacity, associated with a small right pleural effusion. The left lung is clear. Median sternotomy wires are visualized. The cardiac silhouette appears mildly prominent. Tortuosity of the aorta without cirrhotic calcification is identified. No acute osseous abnormality is identified. IMPRESSION: Findings concerning for right lower lobe pneumonia with a small parapneumonic effusion. : [id number] 08/16/2016 - - Read by: Sebastian Rodríguez MD Dictated Date/time: 08/17/16 00:03 Electronically Signed by: Sebastian Rodríguez MD 08/17/16 00:04 FINAL REPORT [facility] Abdomen/Pelvis w IV contrast CT Abdomen/Pelvis w IV contrast CT Clinical Indication: Upper abdominal pain, fever. Family reports one episode of emesis after taking medications and "eating pork." Patient with complaints of chills. Comparison: No prior CT of the abdomen or pelvis submitted. TECHNIQUE: Helical imaging was performed after injection of IV contrast, from the diaphragm through the symphysis with multiplanar reformations obtained. IV CONTRAST: 75 mL of Visipaque GI CONTRAST: No oral contrast was administered. DLP: 1927.22 mGy-cm FINDINGS: LOWER CHEST: There are irregular nodular and tree-in-bud opacities within the right middle lobe, lingula and left lower lobe. A small right pleural effusion is seen with mild pleural thickening. The heart size is not enlarged. Aortic and mitral valve calcifications are seen. Coronary artery calcifications are noted. LIVER: The liver parenchyma is normal in appearance without masses or intrahepatic biliary ductal dilatation. The portal vein is normal in caliber. BILIARY TREE: There is no significant biliary ductal dilatation. GALLBLADDER: The gallbladder is present. Small foci of hyperdensity are seen along the posterior aspect of the gallbladder, which may be small gallstones. PANCREAS: The pancreas is unremarkable. The pancreatic duct is normal in caliber. SPLEEN: The spleen is normal in size and there are no parenchymal abnormalities. ADRENALS: The right adrenal gland is unremarkable. There is mild left adrenal gland thickening. KIDNEYS: The kidneys demonstrates normal contrast enhancement. There are no masses. There is no evidence of renal or ureteral calculi. There is no evidence of hydronephrosis. BOWEL: There is no evidence of bowel obstruction. There are scattered colonic diverticula without surrounding inflammatory change. A moderate amount of fecal material is noted throughout the colon. APPENDIX: The appendix is within normal limits. PELVIS: The prostate gland is enlarged and measures 5.6 cm in transverse diameter. The urinary bladder is unremarkable. PERITONEUM: There is no evidence for free intraperitoneal fluid or air. SOFT TISSUES: There is scarring within the left inguinal region. LYMPH NODES: There is no evidence of mesenteric, retroperitoneal, or inguinal lymphadenopathy. VASCULATURE: There are atherosclerotic calcifications of the nonaneurysmal abdominal aorta and branching vessels. A left common iliac artery stent is seen. MUSCULOSKELETAL: There are degenerative changes within the visualized spine. There is fatty atrophy of the right rectus abdominous muscle. IMPRESSION: 1. Nodular and tree-in-bud lung base opacities, which may represent multifocal pneumonia. 2. Small right pleural effusion with pleural thickening. Differential includes small right pleural empyema. 3. Colonic diverticulosis without evidence of diverticulitis. 4. Questionable cholelithiasis. SL: KPATEL-M 08/16/2016 - - Read by: Mohsen Asencio MD Dictated Date/time: 08/16/16 23:52 Electronically Signed by: Mohsen Asencio MD 08/17/16 00:05 FINAL REPORT [facility] Vital Signs Vital Sign Value Date Comments Source Respitory Rate 12 08/20/2016 [facility] Systolic (mm Hg) 146 08/20/2016 [facility] Diastolic (mm Hg) 68 08/20/2016 [facility] Temperature Oral (F) 98.6 F 08/20/2016 [facility] Heart Rate 72 08/20/2016 [facility] Respitory Rate 18 08/20/2016 [facility] Heart Rate 64 08/20/2016 [facility] Respitory Rate 19 08/20/2016 [facility] Systolic (mm Hg) 129 08/20/2016 [facility] Diastolic (mm Hg) 54 08/20/2016 [facility] Temperature Oral (F) 98.4 F 08/20/2016 [facility] Heart Rate 73 08/20/2016 [facility] Systolic (mm Hg) 143 08/20/2016 [facility] Diastolic (mm Hg) 68 08/20/2016 [facility] Temperature Oral (F) 98.5 F 08/20/2016 [facility] BMI Calculated 29.01 08/17/2016 [facility] Weight 81.534 08/17/2016 [facility] Height 167.64 cm 08/17/2016 [facility] Height 167.64 cm 08/17/2016 [facility] BMI Calculated 29.11 08/17/2016 [facility] Weight 81.818 08/17/2016 [facility] Weight 182 05/02/2014 Mohamed O Jeroudi Height 67 05/02/2014 Mohamed O Jeroudi Temperature Oral (F) 96.2 F 05/02/2014 Mohamed O Jeroudi Heart Rate 59 05/02/2014 Mohamed O Jeroudi Diastolic (mm Hg) 86 05/02/2014 Mohamed O Jeroudi Systolic (mm Hg) 126 05/02/2014 Mohamed O Jeroudi Weight 180 11/24/2013 Mohamed O Jeroudi Height 67 11/24/2013 Mohamed O Jeroudi Temperature Oral (F) 97.6 F 11/24/2013 Mohamed O Jeroudi Heart Rate 60 11/24/2013 Mohamed O Jeroudi Diastolic (mm Hg) 60 11/24/2013 Mohamed O Jeroudi Systolic (mm Hg) 115 11/24/2013 Mohamed O Jeroudi Weight 180 10/27/2013 Mohamed O Jeroudi Height 67 10/27/2013 Mohamed O Jeroudi Temperature Oral (F) 97.6 F 10/27/2013 Mohamed O Jeroudi Heart Rate 60 10/27/2013 Mohamed O Jeroudi Diastolic (mm Hg) 80 10/27/2013 Mohamed O Jeroudi Systolic (mm Hg) 122 10/27/2013 Mohamed O Jeroudi Weight 179 09/26/2013 Mohamed O Jeroudi Height 67 09/26/2013 Mohamed O Jeroudi Temperature Oral (F) 97.1 F 09/26/2013 Mohamed O Jeroudi Heart Rate 60 09/26/2013 Mohamed O Jeroudi Diastolic (mm Hg) 80 09/26/2013 Mohamed O Jeroudi Systolic (mm Hg) 130 09/26/2013 Mohamed O Jeroudi Weight 182 08/18/2013 Mohamed O Jeroudi Height 67 08/18/2013 Mohamed O Jeroudi Temperature Oral (F) 97.5 F 08/18/2013 Mohamed O Jeroudi Heart Rate 60 08/18/2013 Mohamed O Jeroudi Diastolic (mm Hg) 70 08/18/2013 Mohamed O Jeroudi Systolic (mm Hg) 130 08/18/2013 Dion Navas Weight 178 08/04/2013 Dion Navas Height 67 08/04/2013 Dion Navas Temperature Oral (F) 97.7 F 08/04/2013 Dion Navas Heart Rate 60 08/04/2013 Dion Navas Diastolic (mm Hg) 60 08/04/2013 Dion Navas Systolic (mm Hg) 100 08/04/2013 Dion Navas Encounters Location Location Details Encounter Type Encounter Number Reason For Visit Attending Provider ADM Date DC Date Status Source MD JASON Chairez Gets tired easily [id number] 08/04/2013 08/04/2013 Dion Navas MD PA Gets tired easily [id number] 08/04/2013 08/04/2013 MD JASON Servin Gets tired easily [id number] 08/04/2013 08/04/2013 MD JASON Servin Gets tired easily [id number] 08/04/2013 08/04/2013 MD JASON Servin Gets tired easily [id number] 08/04/2013 08/04/2013 MD JASON Servin Gets tired easily [id number] 08/04/2013 08/04/2013 Dion Navas MD PA Unknown [id number] 08/18/2013 08/18/2013 Dion Navas MD PA Unknown [id number] 08/18/2013 08/18/2013 Dion Navas MD PA Unknown [id number] 08/18/2013 08/18/2013 Dion Navas MD PA Unknown [id number] 08/18/2013 08/18/2013 Dion Navas MD PA Unknown [id number] 08/18/2013 08/18/2013 Dion Navas MD PA Unknown [id number] 08/18/2013 08/18/2013 Dion Navas MD PA Unknown [id number] 09/26/2013 09/26/2013 MD JASON Servin Unknown [id number] 09/26/2013 09/26/2013 Dion Navas MD PA Unknown [id number] 09/26/2013 09/26/2013 Dion Navas MD PA Unknown [id number] 09/26/2013 09/26/2013 Dion Navas MD PA Unknown [id number] 09/26/2013 09/26/2013 Dion Navas MD PA Unknown [id number] 09/26/2013 09/26/2013 Dion Navas MD PA Unknown [id number] 09/26/2013 09/26/2013 MD JASON Servin Unknown [id number] 10/27/2013 10/27/2013 Dion Navas MD PA Unknown [id number] 10/27/2013 10/27/2013 MD JASON Servin Unknown [id number] 10/27/2013 10/27/2013 Dion Navas MD PA Unknown [id number] 10/27/2013 10/27/2013 MD JASON Servin Unknown [id number] 10/27/2013 10/27/2013 Dion Navas MD PA Unknown [id number] 10/27/2013 10/27/2013 Dion Navas MD PA Unknown [id number] 11/24/2013 11/24/2013 Dion Navas MD PA Unknown [id number] 11/24/2013 11/24/2013 Dion Navas MD PA Unknown [id number] 11/24/2013 11/24/2013 MD JASON Servin Unknown [id number] 11/24/2013 11/24/2013 MD JASON Servin Unknown [id number] 11/24/2013 11/24/2013 MD JASON Servin Unknown [id number] 11/24/2013 11/24/2013 MD AJSON Servin Unknown [id number] 05/02/2014 05/02/2014 MD JASON Servin Unknown [id number] 05/02/2014 05/02/2014 MD JASON Servin Unknown [id number] 05/02/2014 05/02/2014 MD JASON Servin Unknown [id number] 05/02/2014 05/02/2014 MD JASON Servin Unknown [id number] 05/02/2014 05/02/2014 MD JASON Servin Unknown [id number] 05/02/2014 05/02/2014 Dion Navas [facility] Inpatient [id number] Matt Lara 08/17/2016 08/20/2016 [facility] [id number] Connor Asencio 10/02/2016 10/03/2016 [facility] En[facility] Procedures Procedure Code Date Perfomer Comments Source Bypass [id number] [facility]IN[facility] Enrique
--- OUTSIDE RECORDS SUMMARY | 2018-04-27 13:07 | XMS REPORT ---
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 Active Problem Atherosclerosis of lower extremity with claudication I70.219 Active Problem Bilateral carotid bruits R09.89 Active Problem SSS (sick sinus syndrome) I49.5 Active Problem Chronic diastolic (congestive) heart failure I50.32 Active Problem 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 Active Problem Pain in limb M79.609 Active Problem Bradycardia R00.1 Active Problem 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 Active Problem Swelling of limb M79.89 Active Problem Hypercholesterolemia E78.01 Active Assessment 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
--- OUTSIDE RECORDS SUMMARY | 2018-04-27 13:07 | XMS REPORT ---
Author Author Luis Navas Organization [employer] Address Unknown Phone Unavailable Care Team Providers Care Robotics Mechanic Name Role Phone Luis Navas Unavailable Allergies, Adverse Reactions, Alerts Substance Reaction Event Type N.K.D.A. Info Not Available Non Drug Allergy Encounters Encounter Location Date Unknown Dion Navas MD [place] Oct 27, 2013 Unknown Dion Navas MD [place] Nov 24, 2013 Unknown Dion Navas MD [place] May 02, 2014 Gets tired easily Dion Navas MD [place] August 04, 2013 Unknown MD JASON Chairez August 18, 2013 Unknown Dion Navas MD [place] Sep 26, 2013 Problems Problem Type Condition ICD-9 Code Onset Dates Condition Status Problem Shortness of breath 786.05 Active Problem Unspecified peripheral vascular disease 443.9 Active Problem HTN heart dis benign, 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 Problem Atherosclerosis of lower extremity with claudication 440.21 Active Assessment Status post coronary artery stent placement V45.82 Active Problem 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 Assessment H/O aortic valve replacement V43.3 Active Assessment HTN heart dis benign, 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 Problem Varicose veins of leg with complications 454.8 Active Problem Swelling of limb 729.81 Active Problem Pain in limb 729.5 Active Problem Venous insufficiency 459.81 Active Problem Chest pain at rest 786.50 Active Assessment Pain in limb 729.5 Active Assessment Varicose veins of leg with complications 454.8 Active Assessment Abnormal ECG 794.31 Active Assessment CAD, 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 Problem Generalized osteoarthrosis, 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 Active Problem Heart valve artificial V43.3 Active Assessment Atherosclerosis of lower extremity with claudication 440.21 Active Problem Abnormal EKG 794.31 Active Assessment Swelling of limb 729.81 Active Problem CAD, 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 Problem 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 Medications Medication Code System Code Instructions Start Date End Date Status Dosage Baclofen [facility] [address]-63 10 mg Orally once a day Active 1 tablet Avodart [facility] [address]-79 0.5 MG Orally Once a day Active 1 capsule Atorvastatin Calcium [facility] [address]-64 20 MG Orally Once a day Active 1 tablet Lisinopril [facility] [address]-46 5 Orally Once a day Active 1 half tablet Aspir-81 [facility] [address]-69 81 MG Orally Once a day Active 1 tablet Clopidogrel Bisulfate [facility] [address]-90 75 mg Orally Once a day August 18, 2013 Active 1 tablet Social History Social History Element Qualifiers Date Reported Smoking . Status Former Smoker Quit in 1972 May 02, 2014 Alcohol Use No. May 02, 2014 Alcohol Screening: No. Points: 0, Interpretation: Negative May 02, 2014 Marital Status: . May 02, 2014 Do you drink alcohol? No. 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
--- OUTSIDE RECORDS SUMMARY | 2018-04-27 13:07 | XMS REPORT ---
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 Active Assessment Varicose veins of both lower extremities with complications 454.8 Active Problem Heart valve artificial V43.3 Active Assessment Venous insufficiency 459.81 Active Problem Abnormal EKG 794.31 Active Problem Shortness of breath 786.05 Active Problem 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 Problem Venous insufficiency 459.81 Active Problem Chest pain at rest 786.50 Active Assessment Pain in limb 729.5 Active Assessment Abnormal EKG 794.31 Active Problem 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 Assessment Generalized osteoarthrosis, 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 Active Problem Unspecified peripheral vascular disease 443.9 Active Problem HTN heart dis benign, 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 Problem Swelling of limb 729.81 Active Problem Pain in limb 729.5 Active Assessment HTN heart dis benign, 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 Assessment 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 Assessment Swelling of limb 729.81 Active Assessment Heart valve artificial V43.3 Active Assessment Atherosclerosis of [place] arteries of the extremities with intermittent claudication 440.21 Active Problem CAD, 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 Assessment Shortness of breath 786.05 Active Assessment CAD, 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 Medications Medication Code System Code Instructions Start Date End Date Status Dosage Lisinopril [facility] [address]-53 5 Orally Once a day Active 1 half tablet Aspir-81 [facility] [address]-60 81 MG Orally Once a day Active 1 tablet Cyclobenzaprine HCl [facility] [address]-51 5 MG Orally PRN Active 1 tablet Tamsulosin HCl [facility] [address]-47 0.4 MG Orally Once a day Active 1 tablet Baclofen [facility] [address]-39 10 mg Orally once a day Active 1 tablet with food or milk Metoprolol Tartrate [facility] [address]-89 25 MG Orally Twice a day Active 1 tablet Clopidogrel Bisulfate [facility] [address]-79 75 mg Orally Once a day August 18, 2013 Active 1 tablet Atorvastatin Calcium [facility] [address]-03 20 MG Orally Once a day Active 1 tablet Avodart [facility] [address]-50 0.5 MG Orally Once a day Active 1 capsule Social History Social History Element Qualifiers Date Reported Smoking . Status Former Smoker Quit in 1972 May 02, 2014 Alcohol Use No. May 02, 2014 Alcohol Screening: No. Points: 0, Interpretation: Negative May 02, 2014 Marital Status: . May 02, 2014 Do you drink alcohol? No. 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
--- OUTSIDE RECORDS SUMMARY | 2018-04-27 13:07 | XMS REPORT ---
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 Problem Abnormal EKG 794.31 Active Problem Shortness of breath 786.05 Active Problem 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 Problem Venous insufficiency 459.81 Active Problem Chest pain at rest 786.50 Active Assessment 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 Active Assessment Swelling of limb 729.81 Active Problem 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 Assessment Pain in limb 729.5 Active Problem Unspecified peripheral vascular disease 443.9 Active Problem HTN heart dis benign, 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 Problem Swelling of limb 729.81 Active Problem Pain in limb 729.5 Active Assessment Heart valve artificial V43.3 Active Assessment Abnormal EKG 794.31 Active Assessment 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 Assessment HTN heart dis benign, 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 Assessment 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 Problem CAD, 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 Assessment CAD, 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 Assessment Shortness of breath 786.05 Active Medications Medication Code System Code Instructions Start Date End Date Status Dosage Avodart [facility] [address]-16 0.5 MG Orally Once a day Active 1 capsule Aspir-81 [facility] [address]-94 81 MG Orally Once a day Active 1 tablet Baclofen [facility] [address]-96 10 mg Orally once a day Active 1 tablet with food or milk Lisinopril [facility] [address]-64 5 MG Orally Once a day Active 1 tablet Tamsulosin HCl [facility] [address]-59 0.4 MG Orally Once a day Active 1 tablet Pentoxifylline CR [facility] [address]-75 400 MG Orally three times a day (tid) Inactive 1 tablet Cyclobenzaprine HCl [facility] [address]-94 5 MG Orally PRN Active 1 tablet Lovastatin [facility] [address]-61 40 mg Orally Once a day Active 1 tablet Social History Social History Element Qualifiers Date Reported Smoking . Status Former Smoker Quit in 1972 May 02, 2014 Alcohol Use No. May 02, 2014 Alcohol Screening: No. Points: 0, Interpretation: Negative May 02, 2014 Marital Status: . May 02, 2014 Do you drink alcohol? No. 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
--- OUTSIDE RECORDS SUMMARY | 2018-04-27 13:07 | XMS REPORT | Summary of Care ---
Author Author [facility] Organization [facility] Address Unknown Phone Unavailable Encounter [facility] [email or web address](FIN) [id number] Date(s): 10/02/16 - 10/02/16 [facility] [address] [place] [address]- Discharge Disposition: Home or Self Care Attending Physician: Connor Asencio MD Referring Physician: Connor Asencio MD Vital Signs No data available for this section Problem List Condition Effective Dates Status Health Status Informant Diabetes(Confirmed) Active Hypercholesteremia(C Active onfirmed) Hypertension(Confirm Active ed) Allergies, Adverse Reactions, Alerts Substance Reaction Severity Status NKDA Active Medications No data available for this section Results No data available for this section Immunizations No data available for this section Procedures Procedure Date Related Diagnosis Body Site Bypass Social History Social History Type Response Alcohol Past Smoking Status Former smoker; Exposure to Tobacco Smoke None; Cigarette Smoking Last 365 Days No; Reg Smoking Cessation Counseling No Assessment and Plan No data available for this section
--- OUTSIDE RECORDS SUMMARY | 2018-04-27 13:07 | XMS REPORT | Summary of Care ---
Author Author [facility] Organization [facility] Address Unknown Phone Unavailable Encounter HQ [facility]ib[facility](AGNES) [id number] Date(s): 08/16/16 - 08/20/16 [facility] [address] [place] [address]- [phone] Discharge Disposition: Home or Self Care Attending Physician: Matt Lara MD Admitting Physician: Matt Lara MD Vital Signs 1 2 3 Most recent to oldest [Reference Range]: 167.64 cm (08/17/16 2:37 AM) 167.64 cm (08/16/16 8:40 PM) Height 81.818 kg (08/20/16 6:27 AM) 81.818 kg (08/19/16 4:25 AM) 81.534 kg (08/17/16 5:29 AM) Current Weight 98.6 DegF (08/20/16 12:28 PM) 98.4 DegF (08/20/16 8:15 AM) 98.5 DegF (08/20/16 4:00 AM) Temperature Oral [96.4-99.1 DegF] 146/68 mmHg *HI* (08/20/16 12:28 PM) 129/54 mmHg (08/20/16 8:15 AM) 143/68 mmHg *HI* (08/20/16 5:04 AM) Blood Pressure [90-140/60-90 mmHg] 12 BRMIN *LOW* (08/20/16 2:37 PM) 18 BRMIN (08/20/16 12:28 PM) 19 BRMIN (08/20/16 8:15 AM) Respiratory Rate [14-20 BRMIN] 72 bpm (08/20/16 12:28 PM) 64 bpm (08/20/16 8:15 AM) 73 bpm (08/20/16 5:04 AM) Peripheral Pulse Rate [60-100 bpm] 81.534 kg (08/17/16 2:37 AM) 81.818 kg (08/16/16 8:40 PM) Weight 29.01 m2 (08/17/16 2:37 AM) 29.11 m2 (08/16/16 8:40 PM) Body Mass Index Problem List Condition Effective Dates Status Health Status Informant Diabetes(Confirmed) Active Hypercholesteremia(C Active onfirmed) Hypertension(Confirm Active ed) Allergies, Adverse Reactions, Alerts Substance Reaction Severity Status NKDA Active Medications acetaminophen 975 mg, 3 tab, Route: PO, Drug form: TAB, ONCE, Dosing Weight 81.818, kg, Start date: 08/16/16 21:43:00 CDT, Stop date: 08/16/16 21:43:00 CDT Notes: Do not exceed 4 gm/day. (Same as: Tylenol) Start Date: 08/16/16 Stop Date: 08/16/16 Status: Completed albuterol-ipratropium 2.5-0.5 mg inhalation solution 3 mL, Route: NEB, Drug Form: SOLN, Dosing Weight 81.534, kg, PRN, PRN Respirator y Protocol, Start date: 08/17/16 2:51:00 CDT, Duration: 30 day, Stop date: 09/16 2:50:00 CDT Notes: (Same as: Duoneb) Start Date: 08/17/16 Stop Date: 08/20/16 Status: Discontinued aspirin 81 mg, 1 tab, Route: PO, Drug form: CHEWTAB, Daily, Dosing Weight 81.534, kg, St art date: 08/18/16 9:00:00 CDT, Duration: 30 day, Stop date: 09/16/16 9:00:00 CD T Notes: Take with food. Start Date: 08/18/16 Stop Date: 08/20/16 Status: Discontinued aspirin 81 mg, PO, Daily, 0 Refill(s) Start Date: 08/17/16 Status: Ordered aspirin 81 mg tablet, enteric coated 81 mg=1 tab, PO, Daily, # 90 tab, 3 Refill(s) Start Date: 08/17/16 Status: Ordered atorvastatin 20 mg, 2 tab, Route: PO, Drug form: TAB, Bedtime, Dosing Weight 81.534, kg, Star t date: 08/17/16 21:00:00 CDT, Duration: 30 day, Stop date: 09/15/16 21:00:00 CD T Notes: (Same As: Lipitor) Start Date: 08/17/16 Stop Date: 08/20/16 Status: Discontinued atorvastatin 20 mg, PO, Daily, 0 Refill(s) Start Date: 08/17/16 Status: Ordered cefepime + sodium chloride 0.9% INJ 100 mL 2 gm, Route: IVPB, ABXQ8H, Dosing Weight 81.534, kg, (CrCl >/=50 ml/min, [employer] infection or neutropenic fever), Start date: 08/17/16 19:00:00 CDT, Duration: 10 day, Stop date: 08/27/16 12:00:00 CDT, ABX Indication: Pneumonia Notes: (Same as: Maxipime) MEDICATION WASTE Product Size: 2000 mgProduc t Wasted: ___ mg Start Date: 08/17/16 Stop Date: 08/20/16 Status: Discontinued clopidogrel 75 mg, 1 tab, Route: PO, Drug form: TAB, Daily, Dosing Weight 81.534, kg, Start date: 08/18/16 9:00:00 CDT, Duration: 30 day, Stop date: 09/16/16 9:00:00 CDT Notes: (Same As: Plavix) Start Date: 08/18/16 Stop Date: 08/20/16 Status: Discontinued clopidogrel 75 mg oral tablet 75 mg=1 tab, PO, Daily, # 30 tab, 0 Refill(s) Start Date: 08/17/16 Status: Ordered codeine-guaiFENesin 10 mg-100 mg/5 mL oral syrup 5 mL, Route: PO, Drug Form: LIQ, Dosing Weight 81.534, kg, Q4H, PRN Cough, Start date: 08/17/16 2:51:00 CDT, Duration: 30 day, Stop date: 09/16/16 2:50:00 CDT Notes: (Same As: Duanesin AC) Start Date: 08/17/16 Stop Date: 08/20/16 Status: Discontinued dextromethorphan-guaiFENesin 10 mg-100 mg/5 mL oral liquid 10 mL, Route: PO, Drug Form: SYRP, Dosing Weight 81.534, kg, Q4H, PRN Cough, Sta rt date: 08/17/16 2:51:00 CDT, Duration: 30 day, Stop date: 09/16/16 2:50:00 CDT Notes: (dextromethorphan-guaifenesin 10-100mg/5ml 10 ml oral SOLN ud) (Same as: Robitussin DM) Start Date: 08/17/16 Stop Date: 08/20/16 Status: Discontinued Dextrose 50% Syringe 12.5 gm, 25 mL, Route: IVP, Drug Form: INJ, Dosing Weight 81.534, kg, PRN, PRN B lood Glucose Results, Start date: 08/17/16 2:41:00 CDT, Duration: 30 day, Stop d ate: 09/16/16 2:40:00 CDT Start Date: 08/17/16 Stop Date: 08/20/16 Status: Discontinued Dextrose 50% Syringe 25 gm, 50 mL, Route: IVP, Drug Form: INJ, Dosing Weight 81.534, kg, PRN, PRN Blo od Glucose Results, Start date: 08/17/16 2:41:00 CDT, Duration: 30 day, Stop andrew e: 09/16/16 2:40:00 CDT Start Date: 08/17/16 Stop Date: 08/20/16 Status: Discontinued Flagyl 500 mg, 100 mL, Route: IVPB, Drug form: INJ, ABXQ8H, Dosing Weight 81.534, kg, S tart date: 08/17/16 19:00:00 CDT, Duration: 14 day, Stop date: 08/31/16 11:00:00 CDT, ABX Indication: Pneumonia Notes: (Same as: Flagyl) Avoid alcohol. Start Date: 08/17/16 Stop Date: 08/20/16 Status: Discontinued gabapentin 400 mg oral capsule 400 mg, 1 cap, Route: PO, Drug form: CAP, Daily, Dosing Weight 81.534, kg, Start date: 08/18/16 9:00:00 CDT, Duration: 30 day, Stop date: 09/16/16 9:00:00 CDT Notes: (Same as: Neurontin) Start Date: 08/18/16 Stop Date: 08/20/16 Status: Discontinued gabapentin 400 mg oral capsule 400 mg=1 cap, PO, Daily, 0 Refill(s) Start Date: 08/17/16 Status: Ordered glucagon 1 mg, Route: IM, Drug form: PDR/INJ, PRN, Dosing Weight 81.534, kg, PRN Blood Gl ucose Results, Start date: 08/17/16 2:41:00 CDT, Duration: 30 day, Stop date: 2:40:00 CDT Start Date: 08/17/16 Stop Date: 08/20/16 Status: Discontinued insulin aspart 10 unit, 0.1 mL, Route: SUB-Q, Drug form: SOLN, TID-Before Meals, Dosing Weight 81.534, kg, PRN Blood Glucose Results, Start date: 08/17/16 2:41:00 CDT, Duratio n: 30 day, Stop date: 09/16/16 2:40:00 CDT Notes: Roll in palms of hands gently; Do not shake vigorously. (Same as: NovoJOANNE G)"single patient use only"WASTE: F/P - Black; E - Municipal Trash Bin Stable f or 28 days at room temperature.Expires in days from Date Start Date: 08/17/16 Stop Date: 08/20/16 Status: Discontinued insulin aspart 6 unit, 0.06 mL, Route: SUB-Q, Drug form: SOLN, TID-Before Meals, Dosing Weight 81.534, kg, PRN Blood Glucose Results, Start date: 08/17/16 2:41:00 CDT, Duratio n: 30 day, Stop date: 09/16/16 2:40:00 CDT Notes: Roll in palms of hands gently; Do not shake vigorously. (Same as: NovoLO G)"single patient use only"WASTE: F/P - Black; E - Municipal Trash Bin Stable f or 28 days at room temperature.Expires in days from Date Start Date: 08/17/16 Stop Date: 08/20/16 Status: Discontinued insulin aspart 8 unit, 0.08 mL, Route: SUB-Q, Drug form: SOLN, TID-Before Meals, Dosing Weight 81.534, kg, PRN Blood Glucose Results, Start date: 08/17/16 2:41:00 CDT, Duratio n: 30 day, Stop date: 09/16/16 2:40:00 CDT Notes: Roll in palms of hands gently; Do not shake vigorously. (Same as: Larry Cordova)"single patient use only"WASTE: F/P - Black; E - Municipal Trash Bin Stable f or 28 days at room temperature.Expires in days from Date Start Date: 08/17/16 Stop Date: 08/20/16 Status: Discontinued insulin aspart 4 unit, 0.04 mL, Route: SUB-Q, Drug form: SOLN, TID-Before Meals, Dosing Weight 81.534, kg, PRN Blood Glucose Results, Start date: 08/17/16 2:41:00 CDT, Duratio n: 30 day, Stop date: 09/16/16 2:40:00 CDT Notes: Roll in palms of hands gently; Do not shake vigorously. (Same as: Larry Cordova)"single patient use only"WASTE: F/P - Black; E - Municipal Trash Bin Stable f or 28 days at room temperature.Expires in days from Date Start Date: 08/17/16 Stop Date: 08/20/16 Status: Discontinued insulin aspart 2 unit, 0.02 mL, Route: SUB-Q, Drug form: SOLN, TID-Before Meals, Dosing Weight 81.534, kg, PRN Blood Glucose Results, Start date: 08/17/16 2:41:00 CDT, Duratio n: 30 day, Stop date: 09/16/16 2:40:00 CDT Notes: Roll in palms of hands gently; Do not shake vigorously. (Same as: Larry Cordova)"single patient use only"WASTE: F/P - Black; E - Municipal Trash Bin Stable f or 28 days at room temperature.Expires in days from Date Start Date: 08/17/16 Stop Date: 08/20/16 Status: Discontinued Levaquin 750 mg oral tablet 750 mg=1 tab, PO, Q24H, X 14 day, # 14 tab, 0 Refill(s), Pharmacy: [facility] [id number] Start Date: 08/20/16 Stop Date: 09/03/16 Status: Ordered levofloxacin 500 mg, 100 mL, Route: IVPB, Drug form: SOLN, [id number], Dosing Weight 81.534, kg, Priority: Routine, Start date: 08/17/16 3:00:00 CDT, Duration: 5 day, Stop date: 08/21/16 3:00:00 CDT, ABX Indication: Pneumonia Notes: (Same as:Levaquin) Start Date: 08/17/16 Stop Date: 08/17/16 Status: Discontinued lisinopril 20 mg, 1 tab, Route: PO, Drug form: TAB, Daily, Dosing Weight 81.534, kg, Start date: 08/18/16 9:00:00 CDT, Duration: 30 day, Stop date: 09/16/16 9:00:00 CDT Notes: (Same as: Prinivil, Zestril) Start Date: 08/18/16 Stop Date: 08/20/16 Status: Discontinued lisinopril 20 mg oral tablet 20 mg=1 tab, PO, Daily, # 30 tab, 0 Refill(s) Start Date: 08/17/16 Status: Ordered NS (Bolus) IV 1,000 mL, 1,000 ml/hr, Infuse Over: 1 hr, Route: IV, 1,000, Drug form: INJ, ONCE , Priority: STAT, Dosing Weight 81.818 kg, Start date: 08/16/16 22:42:00 CDT, Du ration: 1 doses or times, Stop date: 08/16/16 22:42:00 CDT Start Date: 08/16/16 Stop Date: 08/16/16 Status: Completed NS (Bolus) IV 1,000 mL, 1,000 ml/hr, Infuse Over: 1 hr, Route: IV, ONCE, Priority: STAT, Dosin g Weight 81.818 kg, Start date: 08/16/16 23:11:00 CDT, Duration: 1 doses or time s, Stop date: 08/16/16 23:11:00 CDT Start Date: 08/16/16 Stop Date: 08/17/16 Status: Completed Protonix 40 mg, Route: IVP, Drug form: INJ, ONCE, Dosing Weight 81.818, kg, Priority: STA T, Start date: 08/16/16 21:51:00 CDT, Stop date: 08/16/16 21:51:00 CDT Notes: For IV push reconstitute with 10 ml 0.9% sodium chloride and push over 2 minutes. (Same as: Protonix) Start Date: 08/16/16 Stop Date: 08/17/16 Status: Completed Saline Flush 0.9% 10 ml, Route: IVP, Drug Form: INJ, Dosing Weight 81.534, kg, PRN, PRN Line Flush , Start date: 08/17/16 2:51:00 CDT, Duration: 30 day, Stop date: 09/16/16 2:50:0 0 CDT Notes: (Same as: BD Posiflush) Start Date: 08/17/16 Stop Date: 08/20/16 Status: Discontinued Saline Flush 0.9% 10 mL, Route: IVP, Drug Form: INJ, Dosing Weight 81.818, kg, PRN, PRN Line Flush , Start date: 08/16/16 21:43:00 CDT, Duration: 30 day, Stop date: 09/15/16 21:42 :00 CDT Notes: (Same as: BD Posiflush) Start Date: 08/16/16 Stop Date: 08/20/16 Status: Discontinued sodium chloride 0.45% 1000 ml INJ 1,000 mL 1,000 mL, Rate: 75 ml/hr, Infuse over: 13.3 hr, Route: IV, Dosing Weight 81.534 kg, Total Volume: 1,000, Start date: 08/17/16 2:51:00 CDT, Duration: 30 day, Sto p date: 09/16/16 2:50:00 CDT Start Date: 08/17/16 Stop Date: 08/20/16 Status: Discontinued tamsulosin 0.4 mg, 1 cap, Route: PO, Drug form: CAP, Daily, Dosing Weight 81.534, kg, Start date: 08/17/16 22:58:00 CDT, Duration: 30 day, Stop date: 09/15/16 9:00:00 CDT Notes: (Same As: Flomax) "Do Not Crush" Start Date: 08/17/16 Stop Date: 08/20/16 Status: Discontinued tamsulosin 0.4 mg, PO, Daily, 0 Refill(s) Start Date: 08/17/16 Status: Ordered vancomycin + sodium chloride 0.9% INJ 250 mL 1,000 mg, Route: IVPB, ONCE, Dosing Weight 81.818, kg, Priority: STAT, Start andrew e: 08/17/16 0:12:00 CDT, Duration: 1 doses or times, Stop date: 08/17/16 0:12:00 CDT, ABX Indication: Pneumonia Notes: TIME CRITICAL MEDICATION(Same As: Vancocin)Infusion rate< 1000 mg: infuse over 1 [id number] - 1500 mg: infuse over 1.5 [id number] - 2000 mg: infuse over 2 hours> 2001 mg: infuse over 2.5 hours MEDICATION WASTE Product Size: 1000 mgProduct Wasted: ___ mg Start Date: 08/17/16 Stop Date: 08/17/16 Status: Completed Vitamin D3 2000 intl units oral capsule 2,000 IntlUnit=1 cap, PO, Daily, # 100 cap, 3 Refill(s) Start Date: 08/17/16 Status: Ordered Zosyn 3.375 gm, Route: IVPB, ONCE, Dosing Weight 81.818, kg, Priority: STAT, Start andrew e: 08/16/16 23:11:00 CDT, Duration: 1 doses or times, Stop date: 08/16/16 23:11: 00 CDT, ABX Indication: Intra-abdominal Infection Start Date: 08/16/16 Stop Date: 08/17/16 Status: Completed Results ELECTROLYTES 1 2 3 Most recent to oldest [Reference Range]: 140 mEq/L (08/19/16 4:25 AM) 140 mEq/L (08/18/16 4:23 AM) 141 mEq/L (08/17/16 4:53 AM) Sodium Lvl [135-145 mEq/L] 4.2 mEq/L (08/19/16 4:25 AM) 4.4 mEq/L (08/18/16 4:23 AM) 4.1 mEq/L (08/17/16 4:53 AM) Potassium Lvl [3.5-5.1 mEq/L] 107 mEq/L (08/19/16 4:25 AM) 108 mEq/L (08/18/16 4:23 AM) 109 mEq/L (08/17/16 4:53 AM) Chloride Lvl [95-109 mEq/L] 26 mEq/L (08/19/16:25 AM) 28 mEq/L (08/18/16:23 AM) 25 mEq/L (08/17/16:53 AM) CO2 [24-32 mEq/L] 11.2 mEq/L (08/19/16:25 AM) 8.4 mEq/L *LOW* (08/18/16:23 AM) 11.1 mEq/L (08/17/16:53 AM) AGAP [10.0-20.0 mEq/L] CHEM PANEL 1 2 3 Most recent to oldest [Reference Range]: 0.97 mg/dL (08/19/16 4:25 AM) 1.10 mg/dL (08/18/16:23 AM) 1.20 mg/dL (08/17/16 4:53 AM) Creatinine Lvl [0.50-1.40 mg/dL] 71 mL/min/1.73m2 1 *NA* (08/19/16 4:25 AM) 61 mL/min/1.73m2 2 *NA* (08/18/16:23 AM) 55 mL/min/1.73m2 3 *NA* (08/17/16:53 AM) eGFR 17 mg/dL (08/19/16 4:25 AM) 17 mg/dL (08/18/16 4:23 AM) 19 mg/dL (08/17/16 4:53 AM) BUN [7-22 mg/dL] 18 (08/19/16 4:25 AM) 15 (08/18/16 4:23 AM) 16 (08/17/16 4:53 AM) B/C Ratio [6-25] 96 mg/dL (08/19/16 4:25 AM) 112 mg/dL *HI* (08/18/16 4:23 AM) 113 mg/dL *HI* (08/17/16 4:53 AM) Glucose Lvl [70-99 mg/dL] 6.3 g/dL *LOW* (08/19/16 4:25 AM) 6.5 g/dL (08/18/16 4:23 AM) 5.8 g/dL *LOW* (08/17/16 4:53 AM) Total Protein [6.4-8.4 g/dL] 2.8 g/dL *LOW* (08/19/16 4:25 AM) 2.9 g/dL *LOW* (08/18/16 4:23 AM) 2.7 g/dL *LOW* (08/17/16 4:53 AM) Albumin Lvl [3.5-5.0 g/dL] 3.5 g/dL (08/19/16 4:25 AM) 3.6 g/dL (08/18/16 4:23 AM) 3.1 g/dL (08/17/16 4:53 AM) Globulin [2.7-4.2 g/dL] 0.8 (08/19/16 4:25 AM) 0.8 (08/18/16 4:23 AM) 0.9 (08/17/16 4:53 AM) A/G Ratio [0.7-1.6] 8.1 mg/dL *LOW* (08/19/16 4:25 AM) 8.1 mg/dL *LOW* (08/18/16 4:23 AM) 7.8 mg/dL *LOW* (08/17/16 4:53 AM) Calcium Lvl [8.5-10.5 mg/dL] 17 unit/L (08/19/16 4:25 AM) 18 unit/L (08/18/16 4:23 AM) 16 unit/L (08/17/16 4:53 AM) ALT [0-65 unit/L] 20 unit/L (08/19/16 4:25 AM) 25 unit/L (08/18/16 4:23 AM) 20 unit/L (08/17/16 4:53 AM) AST [0-37 unit/L] 61 unit/L (08/19/16 4:25 AM) 63 unit/L (08/18/16 4:23 AM) 65 unit/L (08/17/16 4:53 AM) Alk Phos [39-136 unit/L] 0.4 mg/dL (08/19/16 4:25 AM) 0.4 mg/dL (08/18/16 4:23 AM) 0.5 mg/dL (08/17/16 4:53 AM) Bili Total [0.2-1.3 mg/dL] 131 unit/L (08/16/16 9:59 PM) Lipase Lvl [73-393 unit/L] 1.3 mMol/L (08/18/16 4:23 AM) 1.4 mMol/L (08/17/16 4:53 AM) 2.6 mMol/L *HI* (08/16/16 9:59 PM) Lactic Acid Lvl [0.5-2.2 mMol/L] 0.06 ng/mL (08/16/16 9:59 PM) Procalcitonin Lvl [0.00-0.10 ng/mL] 1Result Comment: The eGFR is calculated using the [...] from the National Kidney Disease Education Program ( NKDEP) which additionally recommends that when the eGFR is used in patients with extremes of body mass index for purposes of drug dosing, the eGFR should be mul tiplied by the estimated BMI. 2Result Comment: The eGFR is calculated using the [...] from the National Kidney Disease Education Program ( NKDEP) which additionally recommends that when the eGFR is used in patients with extremes of body mass index for purposes of drug dosing, the eGFR should be mul tiplied by the estimated BMI. 3Result Comment: The eGFR is calculated using the [...] from the National Kidney Disease Education Program ( NKDEP) which additionally recommends that when the eGFR is used in patients with extremes of body mass index for purposes of drug dosing, the eGFR should be mul tiplied by the estimated BMI. CARDIAC ENZYMES 1 2 3 Most recent to oldest [Reference Range]: 116 unit/L (08/16/16 9:59 PM) Total CK [12-191 unit/L] 3.3 ng/mL (08/16/16 9:59 PM) CK MB [0.5-3.6 ng/mL] 2.8 *HI* (08/16/16 9:59 PM) CK MB Index [0.0-2.5] 0.04 ng/mL (08/16/16 9:59 PM) Troponin-I [0.00-0.40 ng/mL] URINE AND STOOL 1 2 3 Most recent to oldest [Reference Range]: Clear (08/16/16 9:59 PM) UA Turbidity [Clear] Ltyellow *NA* (08/16/16 9:59 PM) UA Color 5.0 (08/16/16 9:59 PM) UA pH [5.0-8.0] 1.043 *HI* (08/16/16 9:59 PM) UA Spec Grav [<=1.030] Negative mg/dL *NA* (08/16/16 9:59 PM) UA Glucose [Negative mg/dL] Negative (08/16/16 9:59 PM) UA Blood [Negative] Negative mg/dL *NA* (08/16/16 9:59 PM) UA Ketones [Negative mg/dL] Negative mg/dL (08/16/16 9:59 PM) UA Protein [Negative mg/dL] <=1.0 mg/dL *NA* (08/16/16 9:59 PM) UA Urobilinogen [0.1-1.0 mg/dL] Negative *NA* (08/16/16 9:59 PM) UA Bili [Negative] Negative (08/16/16 9:59 PM) UA Leuk Est [Negative] Negative (08/16/16 9:59 PM) UA Nitrite [Negative] <1 /HPF (08/16/16 9:59 PM) UA WBC [0-5 /HPF] <1 /HPF (08/16/16 9:59 PM) UA RBC [0-2 /HPF] None Seen *NA* (08/16/16 9:59 PM) UA Sq Epi HEMATOLOGY 1 2 3 Most recent to oldest [Reference Range]: 7.3 K/CMM (08/19/16 4:25 AM) 14.4 K/CMM *HI* (08/17/16 4:53 AM) 13.1 K/CMM *HI* (08/16/16 9:59 PM) WBC [3.7-10.4 K/CMM] 3.54 M/CMM *LOW* (08/19/16 4:25 AM) 3.37 M/CMM *LOW* (08/17/16 4:53 AM) 3.88 M/CMM *LOW* (08/16/16 9:59 PM) RBC [4.70-6.10 M/CMM] 10.8 g/dL *LOW* (08/19/16 4:25 AM) 10.2 g/dL *LOW* (08/17/16 4:53 AM) 11.8 g/dL *LOW* (08/16/16 9:59 PM) Hgb [14.0-18.0 g/dL] 32.3 % *LOW* (08/19/16 4:25 AM) 30.2 % *LOW* (08/17/16 4:53 AM) 35.4 % *LOW* (08/16/16 9:59 PM) Hct [42.0-54.0 %] 91.1 fL (08/19/16 4:25 AM) 89.8 fL (08/17/16 4:53 AM) 91.3 fL (08/16/16 9:59 PM) MCV [80.0-94.0 fL] 30.4 pg (08/19/16 4:25 AM) 30.2 pg (08/17/16 4:53 AM) 30.3 pg (08/16/16 9:59 PM) MCH [27.0-31.0 pg] 33.3 g/dL (08/19/16 4:25 AM) 33.6 g/dL (08/17/16 4:53 AM) 33.2 g/dL (08/16/16 9:59 PM) MCHC [32.0-36.0 g/dL] 14.0 % (08/19/16 4:25 AM) 13.7 % (08/17/16 4:53 AM) 13.7 % (08/16/16 9:59 PM) RDW [11.5-14.5 %] 114 K/CMM *LOW* (08/19/16 4:25 AM) 121 K/CMM *LOW* (08/17/16 4:53 AM) 150 K/CMM (08/16/16 9:59 PM) Platelet [133-450 K/CMM] 10.8 fL *HI* (08/19/16 4:25 AM) 9.9 fL (08/17/16 4:53 AM) 10.1 fL (08/16/16 9:59 PM) MPV [7.4-10.4 fL] 73.2 % (08/19/16 4:25 AM) 82.3 % *HI* (08/17/16 4:53 AM) 89.0 % *HI* (08/16/16 9:59 PM) Segs [45.0-75.0 %] 12.5 % *LOW* (08/19/16 4:25 AM) 10.0 % *LOW* (08/17/16 4:53 AM) 5.3 % *LOW* (08/16/16 9:59 PM) Lymphocytes [20.0-40.0 %] 10.2 % (08/19/16 4:25 AM) 7.0 % (08/17/16 4:53 AM) 4.7 % (08/16/16 9:59 PM) Monocytes [2.0-12.0 %] 3.5 % (08/19/16 4:25 AM) 0.2 % (08/17/16 4:53 AM) 0.5 % (08/16/16 9:59 PM) Eosinophils [0.0-4.0 %] 0.6 % (08/19/16 4:25 AM) 0.5 % (08/17/16 4:53 AM) 0.5 % (08/16/16 9:59 PM) Basophils [0.0-1.0 %] 5.4 K/CMM (08/19/16 4:25 AM) 11.9 K/CMM *HI* (08/17/16 4:53 AM) 11.6 K/CMM *HI* (08/16/16 9:59 PM) Segs-Bands # [1.5-8.1 K/CMM] 0.9 K/CMM *LOW* (08/19/16 4:25 AM) 1.4 K/CMM (08/17/16 4:53 AM) 0.7 K/CMM *LOW* (08/16/16 9:59 PM) Lymphocytes # [1.0-5.5 K/CMM] 0.7 K/CMM (08/19/16 4:25 AM) 1.0 K/CMM *HI* (08/17/16 4:53 AM) 0.6 K/CMM (08/16/16 9:59 PM) Monocytes # [0.0-0.8 K/CMM] 0.3 K/CMM (08/19/16 4:25 AM) 0.1 K/CMM (08/16/16 9:59 PM) Eosinophils # [0.0-0.5 K/CMM] 0.1 K/CMM (08/17/16 4:53 AM) 0.1 K/CMM (08/16/16 9:59 PM) Basophils # [0.0-0.2 K/CMM] 13.6 seconds (08/16/16 9:59 PM) PT [12.0-14.7 seconds] 1.02 (08/16/16 9:59 PM) INR [0.85-1.17] 31.7 seconds (08/16/16 9:59 PM) PTT [22.9-35.8 seconds] BACTERIAL - SEROLOGY 1 2 3 Most recent to oldest [Reference Range]: Urine *NA* (08/17/16 10:17 PM) Source Strep Negative (08/17/16 10:17 PM) Strep pneumoniae Ag [Negative] Immunizations No data available for this section Procedures Procedure Date Related Diagnosis Body Site Bypass Social History Social History Type Response Alcohol Past Smoking Status Former smoker; Exposure to Tobacco Smoke None; Cigarette Smoking Last 365 Days No; Reg Smoking Cessation Counseling No Assessment and Plan Extracted from: Title: Clinical Document Author: Connor Asencio MD Date: 08/20/16 Pulmonary/Critical Care Medicine progess note Connor Asencio MD SUBJECTIVE: seen and examined afebrile no distress OBJECTIVE: VitalsTmp(F)Tmp(C)[id number] 08/20 14:37 1296------ 08/20 12:[id number]---[id number]------ 08/20 10:50 96------ 08/20 08:1598.436.86whyf514/54---[id number]------ 08/20 05:04 143/68---7318--------- 24 Hr Tmax: 99.2F (37.33c) at 08/20 00:00Vital Signs are the last 5 in the past 48 hours. 24 Hr Tmin: 98.4F (36.89c) at 08/20 08:15Weights are the last 5 in 60 days, plus initial. DateWt(kg)Wt(lb)Ht(cm)Ht(in)MethodBMIBSA 08/20 81.82 180.00Measured 08/19 81.82 180.00Measured 08/17 81.53 179.75706.64 66.00Measured 29.01.95 08/16 (initial) 81.82 180.00Measured 29.11.95 [id number] 66.00Stated 24 Hr Point of Care Glucoses 08/20 1158Glucose BBB198 H 08/20 0743Glucose POC86 Most Recent Scores: 08/20/16Pain Intensity NRS (0-10)0 08/20/16Glasgow Coma Score15 08/20/16Braden Score21 08/20/16Johns Baltazar Fall Score7 Lines, Tubes, and Drains: 08/18/2016 19:44 Peripheral Lines: Upper arm Right 20 gauge Over the needle catheter 08/16/2016 22:20 Peripheral Lines: Antecubital Left 22 gauge Over the needle catheter (no surgical procedures documented) Labs (Last four charted values) WBC 7.3(AUG 19)H 14.4(AUG 17)H 13.1(AUG 16) Hgb L 10.8(AUG 19)L 10.2(AUG 17)L 11.8(AUG 16) Hct L 32.3(AUG 19)L 30.2(AUG 17)L 35.4(AUG 16) Plt L 114(AUG 19)L 121(AUG 17)150(AUG 16) Na 140(AUG 19)140(AUG 18)141(AUG 17)136(AUG 16) K 4.2(AUG 19)4.4(AUG 18)4.1(AUG 17)4.7(AUG 16) CO2 26(AUG 19)28(AUG 18)25(AUG 17)27(AUG 16) Cl 107(AUG 19)108(AUG 18)109(AUG 17)104(AUG 16) Cr 0.97(AUG 19)1.10(AUG 18)1.20(AUG 17)1.40(AUG 16) BUN 17(AUG 19)17(AUG 18)19(AUG 17)22(AUG 16) Glucose Random 96(AUG 19)H 112(AUG 18)H 113(AUG 17)H 117(AUG 16) Ca L 8.1(AUG 19)L 8.1(AUG 18)L 7.8(AUG 17)8.7(AUG 16) PT 13.6(AUG 16) INR 1.02(AUG 16) PTT 31.7(AUG 16) Troponin 0.04(AUG 16) CK MB 3.3(AUG 16) Total CK 116(AUG 16) RADIOLOGY: ASSESSMENT & EXAM: HEENT:normocephalic,atraumatic Skin:no rash Chest: symmetrical expansion, no wheezing,no rales, no crackles, decreased air entry right base Heart: Regular rhythm, no murmurs Abdomen: Soft, nontender, bowel sounds present Ext: no edema [employer]: alert and oriented, no focal neurological defecits DIAGNOSES & PROBLEMS: Parapneumonic effusion ? loculated, small right effusion RLL pneumonia malignant ?? PLAN & TREATMENT: spoke with Dr. Lara, ok to dc home on po ABX will need CT chest in 3 weeks, discussed with patient, follow up will be needed, patient understands clearly ambulate ok to dc Extracted from: Title: Clinical Document Author: Kristyn Alexander MD Date: 08/17/16 INFECTIOUS DISEASES CONSULTATION NOTE DATE OF ADMISSION: DATE OF CONSULT: REFERRING PHYSICIAN: REASON FOR CONSULTATION: HPI: 86-year-old male past medical history of coronary artery disease, diabetes mellitus hyperlipidemia, and hypertension who presented with nausea vomiting and upper abdominal pain for 1 day. Family reporting chocking eoisode. Patient also complained of some midsternal chest pain he denied any shortness of breath no cough he did have fevers but no chills. No diarrhea. No sick contact. Work up showed chest infiltrate with loculated effusion.Infectious diseases were called for further evaluation PAST MEDICAL HISTORY: HTN DM Hyperlipedemia PAST SURGICAL HISTORY: ALLERGIES: Allergies (1) ActiveReaction NKDANone Documented SOCIAL HISTORY: FAMILY HISTORY: MEDICATIONS: Scheduled Meds (8): 08/18/16 aspirin 81 mg PO Daily 08/17/16 atorvastatin 20 mg PO Bedtime 08/17/16 cefepime + sodium chloride 0.9% INJ 100 mL 2 gm IVPB ABXQ8H 25 ml/hr 08/18/16 clopidogrel 75 mg PO Daily 08/18/16 gabapentin (gabapentin 400 mg oral capsule) 400 mg PO Daily 08/18/16 lisinopril 20 mg PO Daily 08/17/16 metroNIDAZOLE (Flagyl) 500 mg IVPB ABXQ8H 200 ml/hr 08/17/16 tamsulosin 0.4 mg PO Daily DAYS OF ABX: ROS: GENERAL: No change in appetite, energy or weight. No fever, chills or sweats. HEENT: No auditory or visual complaints. No tinnitus. No pharyngeal complaints RESPIRATORY: [place], SOB. CARDIOVASCULAR: No chest pain or pressure. No palpitations GASTROINTESTINAL: No dysphagia, odynophagia, heartburn, diarrhea or constipation. No nausea or vomiting. MUSCULOSKELETAL: No myalgias, arthralgias, joint swelling. NEUROLOGICAL: No vertigo or disturbance of balance or coordination.No motor or sensory complaints. No headache. GENITOURINARY: No dysuria, urgency or urinary frequency. No incontinence. DERMATOLOGIC: No complaint of skin lesions or rashes. No change VITALS: VitalsTmp(F)[id number] 08/17 16:[id number]--- 08/17 12:0798.744006/[id number]--- 08/17 08:0998.942122/69--98--- 08/17 07:32 1897 2.0L/m 08/17 04:[id number]--- 24 Hr Tmax: 102.4F (39.11c) at 08/16 22:02Vital Signs are the last 5 in the past 48 hours. LINES AND CATHETERS: PHYSICAL EXAMINATION: GENERAL: Well-developed, well-nourished in no apparent distress. Alert and cooperative. He is alert and oriented x3. SKIN: Warm and dry with good color. No rash. No tissue breakdown, bleeding or bruising. HEENT: Head is normocephalic and atraumatic. PERRLA, EOMI, TM intact, Mouth is well hydrated and without lesions. Mucous membranes are moist. No oropharyngeal exudates or erythema. NECK: Supple. No carotid bruits. No lymphadenopathy or thyromegaly. CHEST: Symmetrical with equal expansion. LUNGS: CTA x2 HEART: RRR, no murmurs. Normal sinus rate and rhythm. GASTROINTESTINAL: Bowel sounds are normal. Soft, NT, ND. No guarding or rebound tenderness. EXTREMITIES: No edema or varicosities. Pulses 2+ symmetric. NEUROLOGIC: Cranial nerves II through XII are grossly intact. LABORATORY DATA: Labs (Last four charted values) WBC H 14.4(AUG 17)H 13.1(AUG 16) Hgb L 10.2(AUG 17)L 11.8(AUG 16) Hct L 30.2(AUG 17)L 35.4(AUG 16) Plt L 121(AUG 17)150(AUG 16) Na 141(AUG 17)136(AUG 16) K 4.1(AUG 17)4.7(AUG 16) CO2 25(AUG 17)27(AUG 16) Cl 109(AUG 17)104(AUG 16) Cr 1.20(AUG 17)1.40(AUG 16) BUN 19(AUG 17)22(AUG 16) Glucose Random H 113(AUG 17)H 117(AUG 16) Ca L 7.8(AUG 17)8.7(AUG 16) PT 13.6(AUG 16) INR 1.02(AUG 16) PTT 31.7(AUG 16) Troponin 0.04(AUG 16) CK MB 3.3(AUG 16) Total CK 116(AUG 16) CULTURES: DATE/SOURCE/RESULT/ SENSITIVITIES: IMAGING: ASSESMENT : 86-year-old gentleman who has a known past medical history significant for diabetes mellitus CAD and hypertension presented with 1. Pneumonia Multifocal 2. Empyema 3. Fevers 4. Leukocytosis 5. Diabetes mellitus type 2 6. lactic acidosis 7. chronic Aspiration PNA PLAN: As per infectious diseases standpoint patient presentation is consistent with subacute process likely chronic aspiration and pneumonia, he is not a good historian case discussed with the family at bedside they reported that at some point he was having increasing amount of cough now the choking episode was only [address] showed multifocal pneumonia and possible empyema cultures are in the labs, pro calcitonin level was normal. Patient was initiated empirically on Levaquin he has received cefepime and a dose of vancomycin. Continue to follow pulmonary evaluation at this time keep him on empiric antibiotics. This can be a chronic aspiration and pneumonia as well cont aspiration coverage. We will continue to follow. Thank you for providing me the opportunity to take care of this patient. Extracted from: Title: Admission H&P * Author: Dallas Cabezas MD Date: 08/17/16 Impression and Plan 1. Multifocal pneumonia low for questionable empyema in the right lower lung field We will place patient on antibiotic coverage of Levaquin and cefepime and vancomycin We will obtain sputum and urine cultures We will consult infectious disease and pulmonary to evaluate the patient 2. Diabetes mellitus who resume patient's previous home regimen We will place patient on a sliding scale of insulin per insulin protocol 3. Coronary artery disease is stable initial troponin is normal at 0.04 As patient was having chest pain will check serial cardiac enzymes 4. Hypertension is stable will resume his previous home regimen 5. Hyperlipidemia will resume his previous home regimen 6. Disposition patient will require stay greater than 2 midnights and therefore will need to be made inpatient status
--- OUTSIDE RECORDS SUMMARY | 2018-04-27 13:07 | XMS REPORT ---
Author Author Dion Navas Organization [employer] Address Unknown Phone Unavailable Care Team Providers Care Records Administrator Name Role Phone Dion Navas CP Unavailable Allergies No Known Allergies Problems Problem Type Condition Code Onset Dates Condition Status Problem H/O aortic valve replacement Z95.2 Active Problem Abnormal EKG R94.31 Active Problem 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 Active Problem Bradycardia R00.1 Active Problem SSS (sick sinus syndrome) I49.5 Active Problem Bilateral carotid bruits R09.89 Active Problem Pain in limb M79.609 Active Problem 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 Active Problem Atherosclerosis of lower extremity with claudication I70.219 Active Problem 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
--- OUTSIDE RECORDS SUMMARY | 2018-04-27 13:07 | XMS REPORT ---
Author Author Dion Navas Organization [employer] Address Unknown Phone Unavailable Care Team Providers Care Vice President Quality Assurance Name Role Phone Dion Navas CP Unavailable Allergies, Adverse Reactions, Alerts Substance Reaction Event Type N.K.D.A. 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 Active Assessment Chest pain at rest 786.50 Active Problem Heart valve artificial V43.3 Active Assessment Unspecified peripheral vascular disease 443.9 Active Problem Abnormal EKG 794.31 Active Problem [...] Problem Pain in limb 729.5 Active Assessment CAD, 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 Assessment Heart valve artificial V43.3 Active Assessment Swelling of limb 729.81 Active Assessment Atherosclerosis of [place] arteries of the extremities with intermittent claudication 440.21 Active Assessment Shortness of breath 786.05 Active Problem CAD, 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 Assessment HTN heart dis benign, 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 Assessment 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 Medications Medication Code System Code Instructions Start Date End Date Status Dosage Aspir-81 [facility] [address]-27 81 MG Orally Once a day Active 1 tablet Cyclobenzaprine HCl [facility] [address]-90 5 MG Orally PRN Active 1 tablet Baclofen [facility] [address]-17 10 mg Orally once a day Active 1 tablet with food or milk Tamsulosin HCl [facility] [address]-22 0.4 MG Orally Once a day Active 1 tablet Lovastatin [facility] [address]-09 40 mg Orally Once a day Active 1 tablet Lisinopril [facility] [address]-19 5 MG Orally Once a day Active 1 tablet Avodart [facility] [address]-60 0.5 MG Orally Once a day Active 1 capsule Clopidogrel Bisulfate [facility] [address]-30 75 mg Orally Once a day August [...] No. 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
--- OUTSIDE RECORDS SUMMARY | 2018-04-27 13:07 | XMS REPORT ---
Author Author Dion Navas Organization [employer] Address Unknown Phone Unavailable Care Team Providers Care Subject Scientific Research Name Role Phone Dion Navas CP Unavailable [...] Start Date End Date Status Dosage Lisinopril [facility] 32611924808 5 MG Orally Once a day Active 1 half tablet Results No Known Results Summary Purpose [employer] Submission
--- OUTSIDE RECORDS SUMMARY | 2018-04-27 13:07 | XMS REPORT ---
Author Author Luis Navas Organization [employer] Address Unknown Phone Unavailable Care Team Providers Care Vinyl Welder And Fabricator Name Role Phone Luis Navas Unavailable Allergies, Adverse Reactions, Alerts Substance Reaction Event Type N.K.D.A. 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 Active Problem Shortness of breath 786.05 Active Problem Unspecified peripheral vascular disease 443.9 Active Problem HTN heart dis benign, 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 Problem Venous insufficiency 459.81 Active Problem Chest pain at rest 786.50 Active Assessment Swelling of limb 729.81 Active Assessment Pain in limb 729.5 Active Problem 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 Assessment Abnormal EKG 794.31 Active Problem Pain in limb 729.5 Active Problem Generalized osteoarthrosis, 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 Active Problem Atherosclerosis of [place] arteries of the extremities with intermittent claudication 440.21 Active Problem Swelling of limb 729.81 Active Assessment 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 Assessment Shortness of breath 786.05 Active Assessment Heart valve artificial V43.3 Active Assessment HTN heart dis benign, 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 Problem CAD, 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 Problem Heart valve artificial V43.3 Active Assessment CAD, 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 Assessment Atherosclerosis of [place] arteries of the extremities with intermittent claudication 440.21 Active Medications Medication Code System Code Instructions Start Date End Date Status Dosage [facility] [address]-26 0.5 MG Orally Once a day Active 1 capsule Aspir-81 [facility] [address]-56 81 MG Orally Once a day Active 1 tablet Cyclobenzaprine HCl [facility] [address]-71 5 MG Orally PRN Active 1 tablet Baclofen [facility] [address]-31 10 mg Orally once a day Active 1 tablet with food or milk Metoprolol Tartrate [facility] [address]-85 25 MG Orally Twice a day Active 1 tablet Clopidogrel Bisulfate [facility] [address]-21 75 mg Orally Once a day August 18, 2013 Active 1 tablet Lisinopril [facility] [address]-92 5 Orally Once a day Active 1 half tablet Atorvastatin Calcium [facility] [address]-30 20 MG Orally Once a day Active 1 tablet Tamsulosin HCl [facility] [address]-77 0.4 MG Orally Once a day Active 1 tablet Social History Social History Element Qualifiers Date Reported Smoking . Status Former Smoker Quit in 1972 Sep 26, 2013 Alcohol Use No. Sep 26, 2013 Alcohol Screening: No. Points: 0, Interpretation: Negative Sep 26, 2013 Marital Status: . Sep 26, 2013 Do you drink alcohol? No. 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
--- OUTSIDE RECORDS SUMMARY | 2018-04-27 13:07 | XMS REPORT ---
Author Author Dion Navas Organization [employer] Address Unknown Phone Unavailable Care Team Providers Care Sales Representative [employer] Name Role Phone Dion Navas CP Unavailable [...] disease, benign, without CHF I11.9 Active Medications Medication Code System Code Instructions Start Date End Date Status Dosage Furosemide [facility] [address]-59 20 MG Orally Once a day September 08, 2016 Active 1 tablet Lisinopril [facility] [address]-01 5 MG Orally Once a day Active 1 half tablet Results No Known Results Summary Purpose [employer] Submission
--- OUTSIDE RECORDS SUMMARY | 2018-04-27 13:07 | XMS REPORT ---
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 Problem Unspecified peripheral vascular disease 443.9 Active Problem HTN heart dis benign, 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 Problem Swelling of limb 729.81 Active Problem Pain in limb 729.5 Active Assessment HTN heart dis benign, 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 Assessment 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 Assessment Swelling of limb 729.81 Active Assessment Heart valve artificial V43.3 Active Assessment Atherosclerosis of [place] arteries of the extremities with intermittent claudication 440.21 Active Problem CAD, 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 Assessment Shortness of breath 786.05 Active Problem Generalized osteoarthrosis, 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 Active Assessment Venous insufficiency 459.81 Active Assessment CAD, 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 Problem Heart valve artificial V43.3 Active Medications Medication Code System Code Instructions Start Date End Date Status Dosage Avodart [facility] [address]-44 0.5 MG Orally Once a day Active 1 capsule Aspir-81 [facility] [address]-94 81 MG Orally Once a day Active 1 tablet Cyclobenzaprine HCl [facility] [address]-89 5 MG Orally PRN Active 1 tablet Baclofen [facility] [address]-09 10 mg Orally once a day Active 1 tablet with food or milk Metoprolol Tartrate [facility] [address]-33 25 MG Orally Twice a day Active 1 tablet Clopidogrel Bisulfate [facility] [address]-39 75 mg Orally Once a day August 18, 2013 Active 1 tablet Lisinopril [facility] [address]-85 5 Orally Once a day Active 1 half tablet Atorvastatin Calcium [facility] [address]-55 20 MG Orally Once a day Active 1 tablet Tamsulosin HCl [facility] [address]-71 0.4 MG Orally Once a day Active 1 tablet Social History Social History Element Qualifiers Date Reported Smoking . Status Former Smoker Quit in 1972 May 02, 2014 Alcohol Use No. May 02, 2014 Alcohol Screening: No. Points: 0, Interpretation: Negative May 02, 2014 Marital Status: . May 02, 2014 Do you drink alcohol? No. 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
--- OUTSIDE RECORDS SUMMARY | 2018-04-27 13:07 | XMS REPORT ---
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 Assessment Atherosclerosis of lower extremity with claudication 440.21 Active Problem Venous insufficiency 459.81 Active Problem Atherosclerosis of lower extremity with claudication 440.21 Active Problem Pain in limb 729.5 Active Problem Unspecified peripheral vascular disease 443.9 Active Problem Chest pain at rest 786.50 Active Problem Swelling of limb 729.81 Active Assessment Swelling of limb 729.81 Active Assessment Pain in limb 729.5 Active Assessment Varicose veins of leg with complications 454.8 Active Assessment 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 Problem CAD, 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 Problem Generalized osteoarthrosis, 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 Active Assessment HTN heart dis benign, 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 Problem Heart valve artificial V43.3 Active Assessment CAD, 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 Problem Abnormal EKG 794.31 Active Medications Medication Code System Code Instructions Start Date End Date Status Dosage Aspir-81 [facility] [address]-91 81 MG Orally Once a day Active 1 tablet [facility] [address]-48 0.5 MG Orally Once a day Active 1 capsule Cyclobenzaprine HCl [facility] [address]-24 5 MG Orally PRN Active 1 tablet Baclofen [facility] [address]-71 10 mg Orally once a day Active 1 tablet Atorvastatin Calcium [facility] [address]-01 20 MG Orally Once a day Active 1 tablet Metoprolol Tartrate [facility] [address]-42 25 MG Orally Twice a day Active 1 tablet Clopidogrel Bisulfate [facility] [address]-69 75 mg Orally Once a day August 18, 2013 Active 1 tablet Tamsulosin HCl [facility] [address]-50 0.4 MG Orally Once a day Active 1 tablet Lisinopril [facility] [address]-65 5 Orally Once a day Active 1 half tablet Social History Social History Element Qualifiers Date Reported Smoking . Status Former Smoker Quit in 1972 May 02, 2014 Alcohol Use No. May 02, 2014 Alcohol Screening: No. Points: 0, Interpretation: Negative May 02, 2014 Marital Status: . May 02, 2014 Do you drink alcohol? No. 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
[2018-04-27 13:52] LABS: BASOPHILS % 0.3 % (0.0-1.0); EOSINOPHILS % 0.1 % (0.0-6.0); HEMATOCRIT 33.9 % (38.2-49.6); HEMOGLOBIN 11.3 g/dL (14.0-18.0); LYMPHOCYTES # (AUTO) 1.1 (1.0-3.2); LYMPHOCYTES % 7.5 % (18.0-39.1); MEAN CORPUSCULAR HEMOGLOBIN 30.9 pg (28-32); MEAN CORPUSCULAR HGB CONC 33.3 g/dL (31-35); MEAN CORPUSCULAR VOLUME 92.6 fL (81-99); MONOCYTES # (AUTO) 1.1 (0.2-0.8); NEUTROPHILS # (AUTO) 12.8 (2.1-6.9); NEUTROPHILS % 84.6 % (38.7-80.0); PLATELET COUNT 187 x10e3/uL (140-360); RED BLOOD COUNT 3.66 x10e6/uL (4.3-5.7); RED CELL DISTRIBUTION WIDTH 12.8 % (11.7-14.4)
[2018-04-27 14:04] LABS: BILIRUBIN,URINE NEGATIVE (NEGATIVE); CLARITY,URINE SL CLOUDY (CLEAR); COLOR,URINE YELLOW (YELLOW); KETONES,URINE NEGATIVE (NEGATIVE); LEUKOCYTE ESTERASE ,URINE 2+ (NEGATIVE); NITRITE,URINE NEGATIVE (NEGATIVE); PROTEIN,URINE DIPSTICK NEGATIVE (NEGATIVE); URINE UROBILINOGEN 0.2 mg/dL (0.2 - 1)
[2018-04-27 14:05] LABS: INR 0.98; PROTHROMBIN TIME 13.5 seconds (11.9-14.5)
[2018-04-27 14:15] LABS: BACTERIA,URINE MANY /HPF
[2018-04-27 14:16] LABS: ALANINE AMINOTRANSFERASE 12 IU/L (0-55); ALBUMIN 3.4 g/dL (3.5-5.0); ALBUMIN/GLOBULIN RATIO 0.9 (0.8-2.0); ALKALINE PHOSPHATASE 73 IU/L (40-150); ANION GAP 10.5 mmol/L (8-16); BLOOD UREA NITROGEN 13 mg/dL (7-26); BUN/CREATININE RATIO 13 (6-25); CALCIUM 8.3 mg/dL (8.4-10.2); CARBON DIOXIDE 26 mmol/L (22-29); CHLORIDE 100 mmol/L (98-107); CREATININE, SERUM 0.98 mg/dL (0.72-1.25); EST GLOMERULAR FILTRATION RATE > 60 ML/MIN (60-); GLUCOSE 114 mg/dL (74-118); POTASSIUM 4.5 mmol/L (3.5-5.1); SODIUM 132 mmol/L (136-145)
[2018-04-27] MEDS ORDERED: CEFTRIAXONE SOD 1 GM/NS 50 ML 50 ML IV ONE (14:30)
[2018-04-27 17:09] VITALS: BP 157/76
== END 2018-04-27 17:10 | disposition home or self-care (01) ==
LOC: ER 13:02
DX: R50.9 Fever, unspecified (principal); R30.0 Dysuria; N30.91 Cystitis, unspecified with hematuria; I10 Essential (primary) hypertension; I25.10 Atherosclerotic heart disease of native coronary artery without angina pectoris; E78.5 Hyperlipidemia, unspecified; E07.9 Disorder of thyroid, unspecified; Z86.73 Personal history of transient ischemic attack (TIA), and cerebral infarction without residual deficits; Z95.1 Presence of aortocoronary bypass graft
CPT/HCPCS: 36415; 80053; 81001; 83605; 85025; 85610; 85730; 87040; 87086; 87186; 93005; 99283; J0696